=== PATIENT | female | born 1940 | race Caucasian/White ===

== ENCOUNTER 2017-01-31 12:02 | Inpatient (IN) | payer MEDICARE, BC ==
[~2017-01-31] VITALS: Ht 160 cm; Wt 59.0 kg
[2017-01-31 12:10] VITALS: Ht 160 cm; Wt 59.0 kg
[2017-01-31] MEDS ORDERED: HYDROmorphONE 1 MG/ML SYG IV STA (15:46)
[2017-01-31] MEDS ORDERED: SOD CHLORIDE 0.9% 500 ML IV ONE (16:00)
[2017-01-31] MEDS ORDERED: CLOP75TA4 PO (16:05)
[2017-01-31] MEDS ORDERED: ASPI-664 PO (16:05)
[2017-01-31] MEDS ORDERED: PRED5 PO (16:06)
[2017-01-31] MEDS ORDERED: TRAZ50TA18 PO (16:07)
[2017-01-31] MEDS ORDERED: OXYC-209 PO (16:09)
[2017-01-31] MEDS ORDERED: OXYC20TA41 PO (16:09)
[2017-01-31] MEDS ORDERED: CELE200C PO (16:10)
[2017-01-31] MEDS ORDERED: FURO40TA4 PO (16:11)
[2017-01-31] MEDS ORDERED: ESOM40CA PO (16:11)
[2017-01-31] MEDS ORDERED: DULO20CA17 PO (16:12)
[2017-01-31 16:34] LABS: ADD SCAN DIFF NO
[2017-01-31] MEDS ORDERED: FENT1PAT TD (16:34)
[2017-01-31 16:36] LABS: BASOPHILS % 0.4 % (0.0-2.0); EOSINOPHILS # 0.1 10^3/ul (0.0-0.5); EOSINOPHILS % 0.9 % (0.0-7.0); HEMATOCRIT 34.1 % (37.0-47.0); HEMOGLOBIN 10.2 g/dl (12.0-16.0); LYMPHOCYTES # 0.6 10^3/ul (0.8-2.9); LYMPHOCYTES % 11.4 % (15.0-51.0); MEAN CORPUSCULAR HEMOGLOBIN 27.9 pg (29.0-33.0); MEAN CORPUSCULAR HGB CONC 29.9 g/dl (32.0-37.0); MEAN CORPUSCULAR VOLUME 93.4 fl (82.0-101.0); MONOCYTE # 0.6 10^3/ul (0.3-0.9); MONOCYTES % 10.8 % (0.0-11.0); NEUTROPHIL # 4.1 10^3/ul (1.6-7.5); NEUTROPHILS % 76.1 % (39.0-77.0); PLATELET COUNT 271 10^3/UL (140-415); RED BLOOD COUNT 3.65 10^6/ul (4.20-5.40); RED CELL DISTRIBUTION WIDTH 13.9 % (11.5-14.5); WHITE BLOOD COUNT 5.4 10^3/ul (4.8-10.8)
--- NOTE | 2017-01-31 16:47 | RADRPT ---
PROCEDURE: XR Chest. CLINICAL INDICATION: Cough. Sepsis. TECHNIQUE: Single frontal view. COMPARISON: None. FINDINGS: The lungs are clear. The heart is enlarged. There is calcification in the aorta consistent with atherosclerosis. There is no pleural effusion or pneumothorax. There is chronic deformity of the right glenohumeral joint. IMPRESSION: 1. Cardiomegaly and atherosclerosis. 2. Clear lungs. 3. Chronic deformity of the right glenohumeral joint. RPTAT: QQ .Sven Sher MD, MD Date Time Electronically viewed and signed by .Sven Sher MD, MD on 01/31/2017 16:47 .R/
[2017-01-31] MEDS ORDERED: VANCOMYCIN 1 GM (PMX) 250 ML IVPB SCH (17:00)
[2017-01-31] MEDS ORDERED: PIPER-TAZO 3.375 GM IV (PMX) 100 ML IVPB ONE (17:00)
[2017-01-31] MEDS ORDERED: SOD CHLORIDE 0.9% 1,000 ML IV ONE (17:00)
[2017-01-31 17:12] LABS: INR 1.06; PARTIAL THROMBOPLASTIN TIME 32.4 Sec (25.0-35.0); PROTIME 13.8 Sec (12.2-14.2); PT RATIO 1.1
[2017-01-31] MEDS ORDERED: ONDANSETRON 4 MG INJ IV PRN ×2 (18:00→23:30)
[2017-01-31] MEDS ORDERED: ACETAMINOPHEN 325 MG TAB PO PRN (18:00)
--- NOTE | 2017-01-31 18:02 | CONS ---
DATE OF ADMISSION: 01/31/2017 DATE OF CONSULTATION: 01/31/2017 CHIEF COMPLAINT: Right foot infection. HISTORY OF PRESENT ILLNESS: A 76-year-old female who developed wounds on the plantar surface of the right foot. She has been off antibiotics for 10 days prior. She had been on a couple courses of o ral antibiotics with minimal improvement. She has multiple comorbidities including peripheral arter ial disease and history of right lower extremity angioplasty with possible stent placement in the oin, performed in [place] by [facility]. The patient has multiple comorbidities including rheumatoid arthritis, history of a Charcot foot deformity of the right foot. PAST MEDICAL HISTORY: Rheumatoid arthritis. PAST SURGICAL HISTORY: Shoulder surgery, bilateral knee replacement, back surgery, right foot recon struction, venous ablation and right lower extremity stent angioplasty. ALLERGIES: POSSIBLE ANTIBIOTICS, UNKNOWN NAME. PHYSICAL EXAMINATION: VITAL SIGNS: Temperature 98.3, pulse 78, respiratory rate 18, blood pressure 112/54, pulse oximetry 92% on room air. GENERAL: The patient alert, oriented. HEAD: Normocephalic, atraumatic. NECK: Trachea is midline. EXTREMITIES: The patient with right foot deformity. Medial foot incision with scarring. There are multiple plantar wounds with purulent drainage. There is ascending erythema of approximately 3 to 4 cm and a possible fluctuant mass. Multiple varicosities. Right lateral ankle ulceration measurin g approximately 5 x 4 cm with hyperpigmentation of skin. Skin atrophy. She has 2+ pitting edema. Pedal pulses are diminished. Absent protective sensation. No instability noted of hindfoot or midf oot. IMAGING: X-rays pending. LABORATORY DATA: WBC 5.4, hemoglobin 10.2, hematocrit 34.1, platelets 271. Sed rate pending. ASSESSMENT: 1. Right foot cellulitis with possible abscess. 2. Poor response to outpatient treatment on oral antibiotics. 3. Nonhealing ulceration. 4. Rheumatoid arthritis. 5. Peripheral arterial disease. PLAN: The patient seen and evaluated. Obtain arterial noninvasives, radiographs, possible CTA, vas cular consultation and initiate on broad-spectrum antibiotics. X-rays ordered and plan to review wi th the patient. Further recommendations pending clinical appearance. The patient initiated on vanc omycin and Zosyn in the emergency room. The patient has a planned admission with estimated length o f stay of 3 to 5 days. Dictated By: SIMA SARGENT DPM RB/NTS Conf#: [id number] DID#: [id number]
--- NOTE | 2017-01-31 18:50 | ERA ---
ER Documentation Chief Complaint Date/Time DATE: 01/31/17 TIME: 18:42 Chief Complaint right foot wound sent by pmd for admission HPI This 76-year-old female was sent in by her primary care doctor to be admitted for nonhealing right lower extremity ulceration. Patient is not diabetic but does have bad peripheral vascular disease and has a history of stenting. Prone vascular surgeon is not nearby not available currently. She has been on Keflex for 10 days with worsening of the ulcers and pain. States that she is already had a lateral lower extremity ultrasounds to rule out DVT and has had much testing. She denies having CAT scan with contrast to evaluate her vascular status. Denies fever and chills. Her only symptom is the leg pain and redness was spreading and increased size of ulceration.. ROS All systems reviewed and are negative except as per history of present illness. Medications Home Meds Reported Medications Fentanyl Patch (Duragesic Patch) 25 Mcg/Hr Transdermal Patch, 1 PATCH TD Q48H, PATCH 01/31/17 Duloxetine Hcl* (Duloxetine Hcl*) 20 Mg Capsule.dr, 20 MG PO DAILY, #30 CAP 01/31/17 Furosemide* (Furosemide*) 40 Mg Tablet, 40 MG PO DAILY, TAB 01/31/17 Esomeprazole Mag Trihydrate (Nexium) 40 Mg Capsule.dr, 40 MG PO DAILY Y for PRN , #30 CAP 01/31/17 Celecoxib* (Celebrex*) 200 Mg Capsule, 200 MG PO BID, CAP 01/31/17 Oxycodone HCl/Acetaminophen (Percocet 10-325 mg Tablet) 1 Each Tablet, 1 EACH PO Q6H, TAB 01/31/17 Oxycodone Hcl* (Oxycontin*) 20 Mg Tab.er.12h, 20 MG PO Q4, TAB 01/31/17 Trazodone Hcl* (Trazodone Hcl*) 50 Mg Tablet, 50 MG PO DAILY, #30 TAB 01/31/17 Prednisone* (Prednisone*) 5 Mg Tab, 5 MG PO DAILY, TAB 01/31/17 Aspirin* (Aspirin* EC) 81 Mg Tablet.dr, 81 MG PO DAILY, TAB 01/31/17 Clopidogrel Bisulfate* (Clopidogrel Bisulfate*) 75 Mg Tablet, 75 MG PO DAILY, # 30 TAB 01/31/17 Allergies Allergies: Coded Allergies: No Known Allergy (Unverified , 01/31/17) PATIENT HAS ALLERGY TO SOME ANTIBIOTICS, BUT SHE DOES NOT REMEMBER THE NAMES PMhx/Soc History of Surgery: Yes (shoulder surgery ; bilateral knee replacement; back; right foot reconstruct) Anesthesia Reaction: No Hx Neurological Disorder: No Hx Respiratory Disorders: No Hx Cardiac Disorders: No Hx Psychiatric Problems: No Hx Miscellaneous Medical Probl: Yes (rheumatoid arthritis) Hx Alcohol Use: No Hx Substance Use: No Hx Tobacco Use: No Smoking Status: Never smoker Physical Exam Vitals Vital Signs Date Time Temp Pulse Resp B/P Pulse Ox O2 Delivery O2 Flow Rate FiO2 01/31/17 12:10 98.3 78 18 112/54 92 Physical Exam Const: [] Mild distress Head: Atraumatic Eyes: Normal Conjunctiva ENT: Normal External Ears, Nose and Mouth. Neck: Full range of motion..~ No meningismus. Resp: Clear to auscultation bilaterally Cardio: Regular rate and rhythm, no murmurs Abd: Soft, non tender, non distended. Normal bowel sounds Skin: No petechiae or rashes Back: No midline or flank tenderness Ext: No cyanosis, bilateral pedal edema worse on right than left, various ulcerations of the right lower extremity with the largest being on the lateral lower calf but also having interdigital ulcerations on the foot. There is no purulent drainage currently but there is surrounding erythema and calor. Dorsalis pedis pulses are intact bilaterally. She does not have a cold foot. Neur: Awake and alert and oriented 3, no focal deficits Psych: Normal Mood and Affect Result Diagram: 01/31/17 3897 Results 24 hrs Laboratory Tests Test 01/31/17 16:27 White Blood Count 5.410^3/ul Red Blood Count 3.6510^6/ul Hemoglobin 10.2g/dl Hematocrit 34.1% Mean Corpuscular Volume 93.4fl Mean Corpuscular Hemoglobin 27.9pg Mean Corpuscular Hemoglobin Concent 29.9g/dl Red Cell Distribution Width 13.9% Platelet Count 34074^3/UL Mean Platelet Volume 11.0fl Neutrophils % 76.1% Lymphocytes % 11.4% Monocytes % 10.8% Eosinophils % 0.9% Basophils % 0.4% Nucleated Red Blood Cells % 0.0/100WBC Neutrophils # 4.110^3/ul Lymphocytes # 0.610^3/ul Monocytes # 0.610^3/ul Eosinophils # 0.110^3/ul Basophils # 0.010^3/ul Nucleated Red Blood Cells # 0.010^3/ul Prothrombin Time 13.8Sec Prothrombin Time Ratio 1.1 INR International Normalized Ratio 1.06 Activated Partial Thromboplast Time 32.4Sec Current Medications Medications (Trade) Dose Ordered Sig/Tana Route PRN Reason Start Time Stop Time Status Last Admin Dose Admin Sodium Chloride (NS) 500 ml @ 500 mls/hr Q1H ONCE IV 01/31/17 16:00 01/31/17 16:59 DC 01/31/17 16:15 Hydromorphone HCl 1 mg 1 mg ONCE STAT IV 01/31/17 15:46 01/31/17 15:59 DC 01/31/17 16:15 Piperacillin Sod/ Tazobactam Sod 100 ml @ 200 mls/hr ONCE ONCE IVPB 01/31/17 17:00 01/31/17 17:29 DC 01/31/17 17:33 Vancomycin HCl 250 ml @ 125 mls/hr ONCE IVPB 01/31/17 17:00 01/31/17 18:59 Sodium Chloride (NS) 1,000 ml @ 1,000 mls/hr Q1H ONCE IV 01/31/17 17:00 01/31/17 17:59 DC 01/31/17 17:33 Ondansetron HCl (Zofran Inj) 4 mg BRIDGE ORDER PRN IV NAUSEA AND/OR VOMITING 01/31/17 18:00 02/01/17 17:59 Acetaminophen (Tylenol Tab) 650 mg ER BRIDGE PRN PO MILD PAIN/FEVER 01/31/17 18:00 02/01/17 17:59 Procedures/MDM Patient with cellulitis that failed outpatient treatment with a history of severe peripheral vascular disease. Currently the patient has blood flow to the extremities although may be impaired causing inability for ulcerations to heal and providing bacteria within all the opportunity to further infected tissues. She was treated with vancomycin and Zosyn in the emergency room. She was given IV fluid. She was also given 1 of Dilaudid for pain as her normal home regimen includes OxyContin. Also given her a liter of IV fluid for renal protection from contrast CT scan. Her vital signs are stable. Have ordered a CT angios with runoff to guide the patient's treatment. Spoke with Dr. Kearns who will be admitting the patient. Vascular will likely be consulted although currently there is no need for emergent intervention. I have performed preoperative testing in the event that the patient may need revision of her stent or further vascular procedures. She is otherwise stable. She does have persistent bradycardia with normal blood pressure this is likely chronic in nature. Chest x-ray interpretation: I see no acute process, no pulmonary edema, no widened mediastinum, no pneumothorax, no infiltrate, no fractures Departure Diagnosis: Primary Impression: Cellulitis of right lower extremity Additional Impressions: Failure of outpatient treatment Peripheral vascular disease Normocytic anemia Bilateral claudication of lower limb Condition: Stable LEIGH CARLSON DO January 31, 2017 18:50
[2017-01-31 18:57] VITALS: TEMP 98.4
[2017-01-31 19:27] LABS: ALBUMIN 3.7 g/dl (3.3-4.9); ALBUMIN/GLOBULIN RATIO 0.97; CALCIUM 9.8 mg/dl (8.4-10.2); CREATININE 0.72 mg/dl (0.44-1.00); POTASSIUM 5.5 mmol/L (3.5-5.1); TOTAL PROTEIN 7.5 g/dl (6.1-8.1)
--- NOTE | 2017-01-31 19:27 | RADRPT ---
PROCEDURE: XR Foot. CLINICAL INDICATION: Right foot ulceration with swelling TECHNIQUE: AP, lateral and oblique views of the right foot was obtained. The images were reviewed on a PACS workstation. COMPARISON: None. FINDINGS: Diffuse osteopenia is seen. Postoperative changes are seen in the ankle, calcaneus, and tarsal regio n. No definite osteolytic or destructive lesion is seen. No definite acute displaced fracture or dis location is seen. Degenerative changes are seen in the tarsal bones first metatarsal region. Ather osclerotic vascular disease is seen. Dorsal soft tissue swelling is seen. IMPRESSION: 1. No radiographic evidence for osteomyelitis. If there is continued clinical concern for osteomye litis, an MRI of the right foot is recommended. 2. Postoperative changes in the right ankle and foot as detailed above. 3. Dorsal soft tissue swelling. RPTAT: HPNM Physician Archie Date Time Electronically viewed and signed by Physician Archie on 01/31/2017 19:27 /
--- NOTE | 2017-01-31 19:39 | RADRPT ---
PROCEDURE: US Lower extremity Arteries. CLINICAL INDICATION: Diminished pulses. TECHNIQUE: Multiple longitudinal and transverse images of the bilateral lower extremity arteries w ere obtained with davis scale and color Doppler imaging. COMPARISON: No prior studies are available for comparison. FINDINGS: Location RightWaveform LGY685.4 cm/sectriphasic NGBF286.8 cm/sectriphasic WOBP087.8 cm/sectriphasic WCXL107.8 cm/sectriphasic GXX481.3 cm/sectriphasic PTA92.0 cm/secmonophasic DPA3.1 cm/secmonophasic LeftWaveform LDP657.3 cm/sectriphasic OYBU757.1 cm/secmonophasic DNJP330.4 cm/sectriphasic DSFA94.4 cm/sectriphasic POP76.6 cm/sectriphasic PTA69.7 cm/secmonophasic EFL102.3 cm/secbiphasic The bilateral lower extremities are diffusely calcified. SAMIRA measurements Right [employer] SCHO[employer] FRENCH TEACHER: Calcified Right DPA: 0.9 Left MID[employer] SCHO[employer] FRENCH TEACHER: 0.9 Left DPA: 0.9 IMPRESSION: 1. Diffusely calcified bilateral extremity arteries. No focal arterial stenosis is visualized. 2. Monophasic waveforms in the right posterior tibial and dorsalis pedis arteries, and the left prox imal superficial femoral and posterior tibial arteries. This is consistent with inflow disease due to upstream stenoses. RPTAT: HTAR .Jj Nunez MD, Date Time Electronically viewed and signed by .Jj Nunez MD, on 01/31/2017 19:39 .R/
[2017-01-31] MEDS ORDERED: SOD CHLORIDE 0.9% 100 ML ONE (20:08)
[2017-01-31] MEDS ORDERED: IOHEXOL 100 ML ONE (20:08)
[2017-01-31] MEDS ORDERED: IOHEXOL 350MG/ML 50 ML BTL ONE (20:09)
[2017-01-31 20:24] VITALS: BP 165/70; RESP 19
--- NOTE | 2017-01-31 20:36 | CONS ---
Date/Time of Note Date/Time of Note DATE: 01/31/17 TIME: 20:34 Assessment/Plan Assessment/Plan Problems: (1) Peripheral vascular disease Status: Acute (2) Normocytic anemia Status: Acute (3) Cellulitis of right lower extremity Status: Acute (4) Bilateral claudication of lower limb Status: Acute (5) Failure of outpatient treatment Status: Acute Additional Assessment/Plan Patient has PAD CLI wound due to severe PAD Location Right Waveform REPULPING SUPERVISOR 110.4 cm/sec triphasic PSFA 167.8 cm/sec triphasic MSFA 167.8 cm/sec triphasic DSFA 105.8 cm/sec triphasic POP 111.3 cm/sec triphasic SET UP MACHINIST 92.0 cm/sec monophasic DPA 3.1 cm/sec monophasic Left Waveform REPULPING SUPERVISOR 129.3 cm/sec triphasic PSFA 107.1 cm/sec monophasic MSFA 127.4 cm/sec triphasic DSFA 94.4 cm/sec triphasic POP 76.6 cm/sec triphasic SET UP MACHINIST 69.7 cm/sec monophasic DPA 147.3 cm/sec biphasic The bilateral lower extremities are diffusely calcified. SAMIRA measurements Right SET UP MACHINIST: Calcified Right DPA: 0.9 Left SET UP MACHINIST: 0.9 Left DPA: 0.9 IMPRESSION: 1. Diffusely calcified bilateral extremity arteries. No focal arterial stenosis is visualized. 2. Monophasic waveforms in the right posterior tibial and dorsalis pedis arteries, and the left proximal superficial femoral and posterior tibial arteries. This is consistent with inflow disease due to upstream stenoses. Below the knee disease and will need microvascular interventions and loop reconstruction. plan to schedule it out pt d/w pt and . continue pt care here and abx. plan per podiatry. Consultation Date/Type/Reason Admit Date/Time January 31, 2017 at 18:00 Date of Consultation: January 31, 2017 Type of Consultation: Endovascular Cardiology Reason for Consultation PAD Hx of Present Illness Patient is 76 year old F with PMH of HTN, HLD, PAD, Venous insufficiency has venous ablation befroe, also has PAD with stent in past. came in with non healing wound and infection for IV abs Constitutional: no complaints Past Medical History Medical History: coronary artery disease Social History Smoking Status: Never smoker Exam/Review of Systems Vital Signs Vitals Vital Signs Date Time Temp Pulse Resp B/P Pulse Ox O2 Delivery O2 Flow Rate FiO2 01/31/17 20:24 98.2 58 19 165/70 98 01/31/17 18:57 Room Air Exam Constitutional: alert, oriented Psych: no complaints Head: normocephalic Eyes: nl conjunctiva ENMT: nl external ears & nose Respiratory: clear to auscultation Cardiovascular: regular rate and rhythm Gastrointestinal: nl liver, spleen, soft Results Result Diagram: 01/31/17 1627 01/31/17 1630 Results 24 hrs Laboratory Tests Test 01/31/17 16:27 01/31/17 16:30 White Blood Count 5.4 Red Blood Count 3.65 L Hemoglobin 10.2 L Hematocrit 34.1 L Mean Corpuscular Volume 93.4 Mean Corpuscular Hemoglobin 27.9 L Mean Corpuscular Hemoglobin Concent 29.9 L Red Cell Distribution Width 13.9 Platelet Count 271 Mean Platelet Volume 11.0 H Neutrophils % 76.1 Lymphocytes % 11.4 L Monocytes % 10.8 Eosinophils % 0.9 Basophils % 0.4 Nucleated Red Blood Cells % 0.0 Neutrophils # 4.1 Lymphocytes # 0.6 L Monocytes # 0.6 Eosinophils # 0.1 Basophils # 0.0 Nucleated Red Blood Cells # 0.0 Prothrombin Time 13.8 Prothrombin Time Ratio 1.1 INR International Normalized Ratio 1.06 Activated Partial Thromboplast Time 32.4 Sodium Level 136 Potassium Level 5.5 H Chloride Level 97 Carbon Dioxide Level 33 H Anion Gap 12 Blood Urea Nitrogen 29 H Creatinine 0.72 Glucose Level 104 Calcium Level 9.8 Total Bilirubin 0.0 L Direct Bilirubin 0.00 Indirect Bilirubin 0.0 Aspartate Amino Transf (AST/SGOT) 36 Alanine Aminotransferase (ALT/SGPT) 25 Alkaline Phosphatase 90 Total Protein 7.5 Albumin 3.7 Globulin 3.80 H Albumin/Globulin Ratio 0.97 MARCELLO LANGFORD MD January 31, 2017 20:36
[2017-01-31] MEDS ORDERED: HYDROmorphONE 1 MG/ML SYG IV ONE (21:30)
--- NOTE | 2017-01-31 23:17 | RADRPT ---
PROCEDURE: CTA lower extremities CLINICAL INDICATION: Peripheral vascular disease, nonhealing infected ulcers. TECHNIQUE: A CT angiogram of the pelvis with lower extremity runoff was performed with intravenous contrast. The patient was scanned following the uncomplicated intravenous administration of 125 cc of Omnipaque 350. Coronal and sagittal reformatted images were obtained from the axial source imag es. Images were reviewed on a high-resolution PACS workstation. CTDIvol: 5.82, 46.53, 22.69 mGy. DLP : 2700.53 mGy-cm. COMPARISON: Lower extremity arterial ultrasound dated 01/31/2017. FINDINGS: CT angiogram: The distal abdominal aorta is normal in caliber. There is no aortic dissection. The b ilateral common, internal, external iliac arteries are widely patent. There is minimal calcified ao rtoiliac plaque. There is a right common and external iliac vein stent in place. Patency of the isaias nt cannot be determined due to arterial phase of contrast. The right common and deep femoral arteries are widely patent. There is moderate calcified atheroscl erotic plaque along the right superficial femoral artery, without stenosis. Evaluation of the popli teal artery is limited by artifact from a right knee arthroplasty. There is minimal calcified ather osclerotic plaque along the visualized right popliteal vein, without stenosis. There is mild to mod erate calcified atherosclerotic plaque along the right anterior tibial and posterior tibial arteries . Normal three-vessel runoff into the right foot is noted, with normal filling of the right dorsali s pedis artery. The visualized arteries of the right foot appear adequately patent. The patient is status post fusion of the right ankle, hindfoot, and medial midfoot. The left common and deep femoral arteries are widely patent. There is moderate calcified atheroscler otic plaque along the left superficial femoral artery, without stenosis. Evaluation of the left pop liteal artery is limited by artifact from a left knee arthroplasty. There is minimal calcified athe rosclerotic plaque in the distal left popliteal artery without stenosis. Extensive multifocal calci fication of the left posterior tibial artery is seen, with very minimal contrast opacification of it s distal foot branches. There is mild calcification of the left anterior tibial artery, but the ves trenton remains patent into the foot. The left dorsalis pedis artery also appears patent. The left per stanton artery is also adequately patent into the foot. There is diminished contrast opacification of the distal left foot arteries as compared with the contralateral foot. CT pelvis: There is a 1.8 cm noncalcified cyst in the inferior right hepatic lobe, nonspecific. Par tially imaged bilateral renal cysts measure up to 3.0 cm on the right. The visualized small and large bowel are normal in caliber. There is a moderate volume of retained stool in the colon. The appendix is normal. The urinary bladder is unremarkable. The patient is status post hysterectomy. No adnexal mass is se en. There is no ascites. There is no lymphadenopathy. No pneumoperitoneum is seen. There is no suspicious osseous lesion. Degenerative changes are noted along the spine. The patient is status post posterior decompression along the lumbar spine. IMPRESSION: 1. Widely patent distal aorta and bilateral iliac arteries. 2. Mild to moderate atherosclerotic plaque along the right lower extremity arteries. The right lo wer extremity arteries remain widely patent, however, with three-vessel runoff into the right foot. 3. Mild to moderate atherosclerotic plaque along the left lower extremity arteries, with more exten sive plaque seen along the left posterior tibial artery. There is only minimal contrast opacificati on of the distal branches of the left posterior tibial artery in the left foot. The left anterior t ibial and peroneal arteries are adequately patent into the left foot, however there is overall dimin ished contrast opacification of the distal left foot arteries as compared with the right foot. 4. Stent in the right common and external iliac veins. Patency of the stent cannot be determined d ue to arterial phase contrast. 5. Status post bilateral knee arthroplasties, fusion of the right ankle, hindfoot, and medial midfo ot, hysterectomy, and lumbar spine posterior decompression. 6. Moderate volume of retained stool in the colon. RPTAT: HTAR .Jj Nunez MD, MD Date Time Electronically viewed and signed by .Jj Nunez MD, on 01/31/2017 23:16 .R/
--- NOTE | 2017-01-31 23:22 | HP ---
Date/Time of Note Date/Time of Note DATE: 01/31/17 TIME: 23:21 Assessment/Plan VTE Prophylaxis VTE Prophylaxis Intervention: LMWH Lines/Catheters IV Catheter Type (from [facility]): Peripheral IV Assessment/Plan Chief Complaint/Hosp Course This is a 76-year-old female who is being admitted to the [facility] floor for: #1 right lower extremity infection: Started on vancomycin and Zosyn in the ED will continue Vanco and Zosyn. Obtain wound culture. Currently white blood cell count within normal limits patient is afebrile. Will consult wound care. Consult to podiatry and vascular surgery also has been placed by ED. Further imaging studies have also been placed by the consultants. Will await further recommendations from podiatry and vascular surgery. Will hold patient's home pain medications and put her on IV Dilaudid and Percocet. #2 Hyperkalemia: Potassium is 5.5. At the current time will repeat BMP in the morning and give Kayexalate if necessary. She is currently on Lasix. #3 peripheral vascular disease: We will await further recommendations from podiatry and vascular surgery. Continue current home aspirin Plavix. #4 Rheumatoid arthritis: We will continue patient's home prednisone dose as she has been on it for quite some time though this may interfere with her healing. Will also continue acid katie as she is on chronic steroids. #5 anxiety: We will continue patient's trazodone and duloxetine. #6 DVT and GI prophylaxis: Lovenox, PPI Further treatment strategy will be implemented as per the clinical course. Problems: HPI/ROS Admit Date/Time Admit Date/Time January 31, 2017 at 18:00 Hx of Present Illness Chief complaint: Right wound ulceration This 76-year-old female was sent in by her primary care doctor to be admitted for nonhealing right lower extremity ulceration. Patient is not diabetic but does have bad peripheral vascular disease and has a history of stenting. Prone vascular surgeon is not nearby not available currently. She has been on Keflex for 10 days with worsening of the ulcers and pain. States that she is already had a lateral lower extremity ultrasounds to rule out DVT and has had much testing. She denies having CAT scan with contrast to evaluate her vascular status. Denies fever and chills. Her only symptom is the leg pain and redness was spreading and increased size of ulceration.. Allergies: NKDA Medications: See NOV ROS Const: As per HPI Eyes : No pain discharge or redness or change in visual acuity ENT: No pain, sore throat, congestion, congestion, dysphagia or discharge Respiratory: No shortness of breath, cough, sputum, wheezing, or pleuritic pain Cardiovascular: No chest pain, palpitation, PND, or edema GI : no change in appetite, abdominal pain, nausea, vomiting, diarrhea, constipation, or change in the color his stool Genitourinary: No dysuria, hematuria, flank pain , discharge or CVA tenderness Musculoskeletal: As per HPI Skin: No rash, bruising or hives Neuro: No headache, dizziness, syncope, seizure, focal weakness Endocrine: No polyuria, polydipsia, temperature intolerance Psych: No hallucination, depression, anxiety or suicidal ideation Psychological: no complaints PMH/Family/Social Past Medical History Peripheral vascular disease, rheumatoid arthritis, HTN, HLD, Venous insufficiency, anxiety Past Surgical History Bilateral knee replacement, right shoulder surgery, spinal stenosis surgery, 3 right foot surgeries, total abdominal hysterectomy Family History Significant Family History: heart disease (That), cancer (Mom: Lung cancer) Social History Alcohol Use: none Smoking Status: Never smoker Drug Use: none Exam/Review of Systems Vital Signs Vitals Vital Signs Date Time Temp Pulse Resp B/P Pulse Ox O2 Delivery O2 Flow Rate FiO2 01/31/17 20:24 98.2 58 19 165/70 98 01/31/17 18:57 Room Air Exam Exam General: Patient is a pleasant female, is in mild pain secondary to her right lower extremity. The patient is alert oriented -3 lying comfortably in bed. HEENT: Atraumatic, normocephalic. The pupils are equal, round and reactive. Extraocular motor are intact Neck: Supple with full range of motion. No rigidity or meningismus Chest: Nontender Lungs: Clear to auscultation bilaterally no crackles rales or wheezing Heart: Normal S1-S2, Regular rhythm and rate. No murmur, S3, or S4 Abdomen: Soft , nontender, nondistended , bowel sounds are present. No guarding no rebound tenderness , No masses or organomegaly. No costovertebral temporal angle mass Extremities: No cyanosis, bilateral pedal edema worse on right than left, various ulcerations of the right lower extremity with the largest being on the lateral lower calf but also having interdigital ulcerations on the foot. There is no purulent drainage currently but there is surrounding erythema and calor. Dorsalis pedis pulses are intact bilaterally. She does not have a cold foot. Neurologic: Normal mental status, speech normal, cranial nerves II through XII are intact, motor and sensory are intact, no focal weakness Additional Comments PROCEDURE: XR Chest. CLINICAL INDICATION: Cough. Sepsis. TECHNIQUE: Single frontal view. COMPARISON: None. FINDINGS: The lungs are clear. The heart is enlarged. There is calcification in the aorta consistent with atherosclerosis. There is no pleural effusion or pneumothorax. There is chronic deformity of the right glenohumeral joint. IMPRESSION: 1. Cardiomegaly and atherosclerosis. 2. Clear lungs. 3. Chronic deformity of the right glenohumeral joint. RPTAT: QQ .Sven Sher MD, MD Date Time Electronically viewed and signed by .Sven Sher MD, MD on 01/31/2017 16:47 Labs Result Diagram: 01/31/17 1627 01/31/17 1630 Medications Medications Current Medications Ondansetron HCl (Zofran Inj) 4 mg Q6H PRN IV NAUSEA AND/OR VOMITING; Start at 23:30 Oxycodone/ Acetaminophen (Percocet (5/ 325)) 1 tab Q6H PRN PO MODERATE PAIN LEVEL 4-6; Start 01/31/17 at 23:30 Hydromorphone HCl (Dilaudid) 1 mg Q4H PRN IV SEVERE PAIN LEVEL 7-10; Start at 23:30 Docusate Sodium (Colace) 100 mg Q12H PRN PO CONSTIPATION; Start 01/31/17 at 23: 30 Bisacodyl (Dulcolax) 5 mg DAILY PRN PO CONSTIPATION; Start 01/31/17 at 23:30 Famotidine (Pepcid) 20 mg Q12 PO ; Start 01/31/17 at 23:30 Enoxaparin Sodium 40 mg 40 mg DAILY SC ; Start 02/01/17 at 09:00 Vancomycin HCl (Vancocin) 250 ml @ 125 mls/hr Q12H IVPB ; Start 02/01/17 at 06: 00 KATELYNN ARDON January 31, 2017 23:21
[2017-01-31] MEDS ORDERED: NACL 0.9% 3 ML SYG IV SCH (23:30)
[2017-01-31] MEDS ORDERED: VANCOMYCIN IV PER PHARMACY XX SCH (23:30)
[2017-01-31] MEDS ORDERED: BISACODYL (EC) 5 MG TAB PO PRN (23:30)
[2017-01-31] MEDS ORDERED: DOCUSATE SODIUM 100 MG CAP PO PRN (23:30)
[2017-01-31] MEDS ORDERED: FAMOTIDINE 20 MG TAB PO SCH (23:30)
[2017-01-31] MEDS: OXYCODONE/ACETAMINOPHEN (5/325) TAB PO PRN (23:50)
[2017-02-01] MEDS: HYDROmorphONE 1 MG/ML SYG IV PRN ×6 (01:29→22:24)
[2017-02-01] MEDS: VANCOMYCIN 1 GM in NS 250 ML IVPB SCH ×2 (05:31→17:53)
[2017-02-01] MEDS: FUROSEMIDE 40 MG TAB PO SCH (05:36)
[2017-02-01 06:17] LABS: ADD SCAN DIFF NO
[2017-02-01 06:26] LABS: BASOPHILS % 0.2 % (0.0-2.0); EOSINOPHILS # 0.1 10^3/ul (0.0-0.5); EOSINOPHILS % 2.8 % (0.0-7.0); HEMATOCRIT 32.5 % (37.0-47.0); HEMOGLOBIN 9.7 g/dl (12.0-16.0); LYMPHOCYTES # 0.8 10^3/ul (0.8-2.9); LYMPHOCYTES % 18.8 % (15.0-51.0); MEAN CORPUSCULAR HEMOGLOBIN 27.9 pg (29.0-33.0); MEAN CORPUSCULAR HGB CONC 29.8 g/dl (32.0-37.0); MEAN CORPUSCULAR VOLUME 93.4 fl (82.0-101.0); MEAN PLATELET VOLUME 10.9 fl (7.4-10.4); MONOCYTE # 0.5 10^3/ul (0.3-0.9); MONOCYTES % 11.1 % (0.0-11.0); NEUTROPHIL # 2.8 10^3/ul (1.6-7.5); NEUTROPHILS % 66.9 % (39.0-77.0); PLATELET COUNT 220 10^3/UL (140-415); RED BLOOD COUNT 3.48 10^6/ul (4.20-5.40); RED CELL DISTRIBUTION WIDTH 14.1 % (11.5-14.5); WHITE BLOOD COUNT 4.3 10^3/ul (4.8-10.8)
[2017-02-01 06:54] LABS: ALBUMIN 3.1 g/dl (3.3-4.9); ALBUMIN/GLOBULIN RATIO 0.91; BILIRUBIN,INDIRECT 0.1 mg/dl (0-1.1); BILIRUBIN,TOTAL 0.1 mg/dl (0.2-1.3); CALCIUM 9.2 mg/dl (8.4-10.2); CHOL/HDL RATIO 2.4 RATIO; CREATININE 0.56 mg/dl (0.44-1.00); MAGNESIUM 1.8 mg/dl (1.7-2.5); POTASSIUM 4.1 mmol/L (3.5-5.1); TOTAL PROTEIN 6.5 g/dl (6.1-8.1)
[2017-02-01 07:45] VITALS: BP 129/59; RESP 20
[2017-02-01] MEDS: PIPER-TAZO 3.375 GM IV (PMX) 100 ML IVPB SCH ×3 (08:37→23:25)
[2017-02-01] MEDS: traZODone 50 MG TAB PO SCH (08:37)
[2017-02-01] MEDS: OXYCODONE/ACETAMINOPHEN (5/325) TAB PO PRN ×3 (08:38→23:25)
[2017-02-01] MEDS: CLOPIDOGREL 75 MG TAB PO SCH (08:38)
[2017-02-01] MEDS: ASPIRIN (EC) 81 MG TAB PO SCH (08:38)
[2017-02-01] MEDS: predniSONE 5 MG TAB PO SCH (08:38)
[2017-02-01] MEDS ORDERED: DULOXETINE 20 MG CAP DR PO SCH (09:00)
[2017-02-01] MEDS: ENOXAPARIN 40 MG/0.4 ML SYG SC SCH (09:11)
[2017-02-01] MEDS ORDERED: LIDOCAINE 2% (MDV) 20 ML INJ INJ ONE (10:30)
[2017-02-01] MEDS ORDERED: hydrALAzine 20 MG INJ IV PRN (11:00)
--- NOTE | 2017-02-01 11:56 | PN ---
DATE: 02/01/2017 TIME OF EVALUATION: 11:15 a.m. SUBJECTIVE DATA: Complains of right lower extremity pain. OBJECTIVE DATA: VITAL SIGNS: Temperature 98.0, pulse rate 80, respiratory rate 20, blood pressure 129/50, oxygen saturation 95% on room air. GENERAL: This is a 76-year-old elderly female lying in bed in no apparent distress. HEENT: Head normocephalic and atraumatic. Eyes: Anicteric sclerae. Conjunctivae clear. ENT: Nasal septum is midline. Oral mucosa is moist. NECK: Supple. JVD noticed. RESPIRATORY: Bilaterally clear to auscultation. No adventitious breath sounds heard. No use of accessory muscles of respiration. CARDIAC: Regular rate and rhythm. No murmurs. ABDOMEN: Soft, nontender and nondistended. Bowel sounds positive in all 4 quadrants. GENITOURINARY: Deferred. EXTREMITIES: No cyanosis, no clubbing, no edema of the left lower extremity. Left lower extremity dorsalis pedis pulse palpable. Bilateral lower extremity edema and erythema with right foot dressing. NEUROLOGIC: The patient is awake, alert and oriented. Cranial nerves are grossly intact. LABORATORY DATA AND DIAGNOSTIC DATA: WBC 4.3, hemoglobin 9.7, hematocrit 32.5, platelet count 220. Sodium 139, potassium 4.1, chloride 104, carbon dioxide 30 , anion gap 9, BUN 17, creatinine 0.56, glucose 86, calcium 9.2, magnesium 1.8. ASSESSMENT AND PLAN: 1. Right lower extremity chronic wound infection. Failed outpatient treatment. The patient will be continued on antibiotics. Will call infectious disease on the case. Pancultures are pending at this time. The patient being followed by podiatry and vascular surgery. 2. Peripheral vascular disease. Being followed by podiatry and vascular surgery. We will continue the patient on aspirin and Plavix. 3. Rheumatoid arthritis. The patient's home prednisone will be continued. 4. Hyperkalemia. Resolved. Monitor. 5. Normocytic anemia. Etiology unclear. Most probably anemia of chronic disease. Will monitor the H&H closely. Will transfuse as needed. 6. Fluid, electrolytes and nutrition. Regular diet as tolerated. 7. Deep vein thrombosis prophylaxis with subcutaneous Lovenox. 8. Gastrointestinal prophylaxis. Proton pump inhibitors . 9. Plan. Continue analgesics. Continue antibiotics. Involve infectious disease on the case. Await further recommendations from podiatry and vascular surgery. The case was discussed with Dr. Cano. DAVID CANO MD, AM/OTONIEL Conf#: [id number] DID#: [id number] MTDD
--- NOTE | 2017-02-01 15:36 | CONS ---
DATE OF ADMISSION: 01/31/2017 DATE OF CONSULTATION: 02/01/2017 INFECTIOUS DISEASE CONSULTATION REASON FOR CONSULTATION: Antibiotic management. HISTORY OF PRESENT ILLNESS: Sima Pace is a 76-year-old female who was sent in by her primary doctor for nonhealing right lower extremity ulceration. The patient reportedly is not diabetic but does have severe peripheral vascular disease and has a history of stenting in the past. She has bee n on Keflex for 10 days with worsening of the ulcers and pain. She has a bilateral lower extremity ultrasound to rule out DVT. She denies CAT scan with contrast to evaluate her vascular status. She has no fever or chills. Her symptoms are that of leg pain, redness, and increased size of her ulce ration. PAST MEDICAL HISTORY: Operations as outlined. FAMILY HISTORY: Noncontributory. PAST MEDICAL HISTORY: Includes peripheral vascular disease, rheumatoid arthritis, hypertension, hyp erlipidemia, venous insufficiency, and anxiety. PAST SURGICAL HISTORY: Bilateral knee replacements, right shoulder surgery, spinal surgery for spin al stenosis, three right foot surgeries, and a total abdominal hysterectomy. FAMILY HISTORY: Noncontributory. SOCIAL HISTORY: She does not smoke, drink, or abuse drugs. ALLERGIES: NONE TO PENICILLIN, SULFA, OR FOODS. MEDICATIONS: Per chart. REVIEW OF SYSTEMS: As per HPI. PHYSICAL EXAMINATION: GENERAL: The patient is a pleasant female who is complaining of some right lower extremity pain in no acute distress. VITAL SIGNS: Stable. She is afebrile. SKIN: Without generalized rash. HEENT: Within normal limits. NECK: Supple. LYMPH NODES: None palpable. CHEST: Decreased breath sounds at the bases. HEART: Without murmur or gallop. ABDOMEN: Soft, nontender, without organosplenomegaly or masses. EXTREMITIES: Without cyanosis or clubbing. She has bilateral pedal edema, worse on the right than the left. She has ulcerations on the right lower extremity with the largest being on the left later al lower calf. She has some interdigital ulcerations on the foot. No purulent drainage, but there is surrounding erythema and warmth. RECTAL AND GENITAL: Deferred. NEUROLOGICAL: No focal neurological abnormalities. IMAGING STUDIES: Chest x-ray: Lungs are clear. There is cardiomegaly, chronic deformity of the ri ght glenohumeral joint. HOSPITAL COURSE: On admission, her white count was 5.4, H and H of 10.2 and 34.1, platelet count 27 1,000. BUN and creatinine 29/0.72 with random glucose of 104. The patient is currently on vancomyc in. She is also on Zosyn. We will continue her on this regimen. She had a lower extremity CT felix ogram with widely patent distal aorta and bilateral iliac arteries, mild to moderate atherosclerotic plaques along the right lower extremity arteries. They remain widely patent, however, with 3-vesse l runoff into the right foot. There is diminished overall contrast opacification of the distal left foot arteries as compared with the right. There is a stent in the right common and external iliac veins. Patency of the stent cannot be determined to the arterial phase contrast, status post bilate ral knee arthroplasties, fusion of the right ankle hindfoot, medial midfoot. She has hysterectomy a nd lumbar spine posterior decompression and a moderate volume of retained stool in the colon. Chest x-ray showed clear lungs as noted previously, IMPRESSION AND PLAN: Continue the patient on current therapy with vancomycin and with Zosyn. I sourav arroyo dictate my findings to the hospitalist and to Dr. López. Dictated By: EMILY ARRIOLA MD, JD/OTONIEL Conf#: [id number] DID#: [id number]
[2017-02-01] MEDS ORDERED: LIDOCAINE 4% CR TOP ONE (16:00)
--- NOTE | 2017-02-01 19:23 | CONS ---
Date/Time of Note Date/Time of Note DATE: 02/01/17 TIME: 19:21 Consult Date/Type/Reason Admit Date/Time January 31, 2017 at 18:00 Initial Consult Date 01/31/17 Type of Consultation: Endovascular Cardiology Objective Vital Signs Date Time Temp Pulse Resp B/P Pulse Ox O2 Delivery O2 Flow Rate FiO2 02/01/17 07:45 98.0 83 20 129/59 95 01/31/17 18:57 Room Air Intake and Output 01/31/17 01/31/17 02/01/17 15:00 23:00 07:00 Intake Total 1350 ml 720 ml Output Total 400 ml Balance 1350 ml 320 ml Results/Medications Result Diagram: 02/01/17 0535 02/01/17 0535 Results 24 hrs Laboratory Tests Test 02/01/17 05:35 02/01/17 12:25 White Blood Count 4.3 #L Red Blood Count 3.48 L Hemoglobin 9.7 L Hematocrit 32.5 L Mean Corpuscular Volume 93.4 Mean Corpuscular Hemoglobin 27.9 L Mean Corpuscular Hemoglobin Concent 29.8 L Red Cell Distribution Width 14.1 Platelet Count 220 Mean Platelet Volume 10.9 H Neutrophils % 66.9 Lymphocytes % 18.8 Monocytes % 11.1 H Eosinophils % 2.8 Basophils % 0.2 Nucleated Red Blood Cells % 0.0 Neutrophils # 2.8 Lymphocytes # 0.8 Monocytes # 0.5 Eosinophils # 0.1 Basophils # 0.0 Nucleated Red Blood Cells # 0.0 Sodium Level 139 Potassium Level 4.1 Chloride Level 104 Carbon Dioxide Level 30 Anion Gap 9 Blood Urea Nitrogen 17 # Creatinine 0.56 Glucose Level 86 Hemoglobin A1c 5.3 Calcium Level 9.2 Magnesium Level 1.8 Total Bilirubin 0.1 L Direct Bilirubin 0.00 Indirect Bilirubin 0.1 Aspartate Amino Transf (AST/SGOT) 23 Alanine Aminotransferase (ALT/SGPT) 26 Alkaline Phosphatase 84 Total Protein 6.5 # Albumin 3.1 L Globulin 3.40 H Albumin/Globulin Ratio 0.91 Triglycerides Level 74 Cholesterol Level 127 LDL Cholesterol, Calculated 60 HDL Cholesterol 52 Cholesterol/HDL Ratio 2.4 Vitamin D 1,25-Dihydroxy < 12.8 L Medications Current Medications Ondansetron HCl (Zofran Inj) 4 mg Q6H PRN IV NAUSEA AND/OR VOMITING; Start at 23:30 Oxycodone/ Acetaminophen (Percocet (5/ 325)) 1 tab Q6H PRN PO MODERATE PAIN LEVEL 4-6 Last administered on 02/01/17 16:13; Admin Dose 1 TAB; Start at 23:30 Hydromorphone HCl (Dilaudid) 1 mg Q4H PRN IV SEVERE PAIN LEVEL 7-10 Last administered on 02/01/17 18:33; Admin Dose 1 MG; Start 01/31/17 at 23:30 Docusate Sodium (Colace) 100 mg Q12H PRN PO CONSTIPATION; Start 01/31/17 at 23: 30 Bisacodyl (Dulcolax) 5 mg DAILY PRN PO CONSTIPATION; Start 01/31/17 at 23:30 Enoxaparin Sodium 40 mg 40 mg DAILY SC Last administered on 02/01/17 09:11; Admin Dose 40 MG; Start 02/01/17 at 09:00 Vancomycin HCl (Vancocin) 250 ml @ 125 mls/hr Q12H IVPB Last administered on 17:53; Admin Dose 125 MLS/HR; Start 02/01/17 at 06:00 Aspirin (Halfprin) 81 mg DAILY PO Last administered on 02/01/17 08:38; Admin Dose 81 MG; Start 02/01/17 at 09:00 Clopidogrel Bisulfate (plaVIX) 75 mg DAILY PO Last administered on 02/01/17 08 :38; Admin Dose 75 MG; Start 02/01/17 at 09:00 Duloxetine HCl (Cymbalta) 20 mg DAILY PO Last administered on 02/01/17 09:17; Admin Dose 20 MG; Start 02/01/17 at 09:00 Furosemide (Lasix) 40 mg DAILY@06 PO ; Start 02/01/17 at 06:00 Prednisone (Prednisone) 5 mg DAILY PO Last administered on 02/01/17 08:38; Admin Dose 5 MG; Start 02/01/17 at 09:00 Trazodone HCl 50 mg 50 mg DAILY PO Last administered on 02/01/17 08:37; Admin Dose 50 MG; Start 02/01/17 at 09:00 Piperacillin Sod/ Tazobactam Sod (Zosyn 3.375gm/ 100 ml (Pmx)) 100 ml @ 200 mls /hr Q8H IVPB Last administered on 02/01/17t 16:14; Admin Dose 200 MLS/HR; Start 02/01/17 at 08:00 Pantoprazole (Protonix Tab) 40 mg DAILY@06 PO ; Start 02/02/17 at 06:00 Miscellaneous Information (*Rx Drug Level Order Reminder*) VANCOMYCIN TROUGH AT 0400 ONCE ONCE XX ; Start 02/02/17 at 04:00; Stop 02/02/17 at 04:01 Hydralazine HCl (Apresoline) 10 mg Q6H PRN IV SBP>160; Start 02/01/17 at 11:00 Cholecalciferol (Vitamin D) 1,000 unit DAILY PO ; Start 02/02/17 at 09:00 Assessment/Plan Chief Complaint/Hosp Course Patient is 76 year old F with PMH of HTN, HLD, PAD, Venous insufficiency has venous ablation befroe, also has PAD with stent in past. came in with non healing wound and infection for IV abs Problems: Additional Assessment/Plan Patient is stable ID on case podiatry for senior care abx planning I had long discussion with patient's family and herself plan to do out pt angiography of lower extremity with possible pedal loop revascularization. continue current management. MARCELLO LANGFORD MD February 01, 2017 19:23
[2017-02-01 19:26] VITALS: BP 129/60; RESP 18
--- NOTE | 2017-02-01 20:55 | PN ---
Date/Time of Note Date/Time of Note DATE: 02/01/17 TIME: 20:50 Assessment/Plan VTE Prophylaxis VTE Prophylaxis Intervention: SCD's Lines/Catheters IV Catheter Type (from Nrsg): Peripheral IV Assessment/Plan Assessment/Plan Cellulitis right foot/ ankle edema PAD Charcot post fusion status pantalar Gait abnormaility Pain RA Elevated ESR cont abx. appreciate id recs. BID chlorohexidine/ santyl. Pain management - lidocaine patch and topical. Monitor. Some improvement. Reviewed labs/ studies. Discussed with vasc. ELOS 2-3 days. Subjective 24 Hr Interval Summary Free Text/Dictation Right foot/ ankle cellulitis. Prior pantalar fusion/ charcot/ RA on vanco/ zosyn. Pain controlled. Denies f/n/v. Blood cx prelim neg. ESR elevated. Constitutional: other Exam/Review of Systems Vital Signs Vitals Vital Signs Date Time Temp Pulse Resp B/P Pulse Ox O2 Delivery O2 Flow Rate FiO2 02/01/17 19:26 98.4 77 18 129/60 91 01/31/17 18:57 Room Air Intake and Output 01/31/17 01/31/17 02/01/17 15:00 23:00 07:00 Intake Total 1350 ml 720 ml Output Total 400 ml Balance 1350 ml 320 ml Exam Constitutional: alert, oriented Psych: no complaints Respiratory: clear to auscultation, normal air movement Extremities: calf tenderness, normal pulses, pitting pedal edema Skin: other (ulceration plantar aspect right foot + cellulitis) Results Result Diagram: 02/01/17 0535 02/01/17 0535 Results 24 hrs Laboratory Tests Test 02/01/17 05:35 02/01/17 12:25 White Blood Count 4.3 #L Red Blood Count 3.48 L Hemoglobin 9.7 L Hematocrit 32.5 L Mean Corpuscular Volume 93.4 Mean Corpuscular Hemoglobin 27.9 L Mean Corpuscular Hemoglobin Concent 29.8 L Red Cell Distribution Width 14.1 Platelet Count 220 Mean Platelet Volume 10.9 H Neutrophils % 66.9 Lymphocytes % 18.8 Monocytes % 11.1 H Eosinophils % 2.8 Basophils % 0.2 Nucleated Red Blood Cells % 0.0 Neutrophils # 2.8 Lymphocytes # 0.8 Monocytes # 0.5 Eosinophils # 0.1 Basophils # 0.0 Nucleated Red Blood Cells # 0.0 Sodium Level 139 Potassium Level 4.1 Chloride Level 104 Carbon Dioxide Level 30 Anion Gap 9 Blood Urea Nitrogen 17 # Creatinine 0.56 Glucose Level 86 Hemoglobin A1c 5.3 Calcium Level 9.2 Magnesium Level 1.8 Total Bilirubin 0.1 L Direct Bilirubin 0.00 Indirect Bilirubin 0.1 Aspartate Amino Transf (AST/SGOT) 23 Alanine Aminotransferase (ALT/SGPT) 26 Alkaline Phosphatase 84 Total Protein 6.5 # Albumin 3.1 L Globulin 3.40 H Albumin/Globulin Ratio 0.91 Triglycerides Level 74 Cholesterol Level 127 LDL Cholesterol, Calculated 60 HDL Cholesterol 52 Cholesterol/HDL Ratio 2.4 Vitamin D 1,25-Dihydroxy < 12.8 L Medications Medications Current Medications Ondansetron HCl (Zofran Inj) 4 mg Q6H PRN IV NAUSEA AND/OR VOMITING; Start at 23:30 Oxycodone/ Acetaminophen (Percocet (5/ 325)) 1 tab Q6H PRN PO MODERATE PAIN LEVEL 4-6 Last administered on 02/01/17 16:13; Admin Dose 1 TAB; Start at 23:30 Hydromorphone HCl (Dilaudid) 1 mg Q4H PRN IV SEVERE PAIN LEVEL 7-10 Last administered on 02/01/17 18:33; Admin Dose 1 MG; Start 01/31/17 at 23:30 Docusate Sodium (Colace) 100 mg Q12H PRN PO CONSTIPATION; Start 01/31/17 at 23: 30 Bisacodyl (Dulcolax) 5 mg DAILY PRN PO CONSTIPATION; Start 01/31/17 at 23:30 Enoxaparin Sodium 40 mg 40 mg DAILY SC Last administered on 02/01/17 09:11; Admin Dose 40 MG; Start 02/01/17 at 09:00 Vancomycin HCl (Vancocin) 250 ml @ 125 mls/hr Q12H IVPB Last administered on 17:53; Admin Dose 125 MLS/HR; Start 02/01/17 at 06:00 Aspirin (Halfprin) 81 mg DAILY PO Last administered on 02/01/17 08:38; Admin Dose 81 MG; Start 02/01/17 at 09:00 Clopidogrel Bisulfate (plaVIX) 75 mg DAILY PO Last administered on 02/01/17 08 :38; Admin Dose 75 MG; Start 02/01/17 at 09:00 Duloxetine HCl (Cymbalta) 20 mg DAILY PO Last administered on 02/01/17 09:17; Admin Dose 20 MG; Start 02/01/17 at 09:00 Furosemide (Lasix) 40 mg DAILY@06 PO ; Start 02/01/17 at 06:00 Prednisone (Prednisone) 5 mg DAILY PO Last administered on 02/01/17 08:38; Admin Dose 5 MG; Start 02/01/17 at 09:00 Trazodone HCl 50 mg 50 mg DAILY PO Last administered on 02/01/17 08:37; Admin Dose 50 MG; Start 02/01/17 at 09:00 Piperacillin Sod/ Tazobactam Sod (Zosyn 3.375gm/ 100 ml (Pmx)) 100 ml @ 200 mls /hr Q8H IVPB Last administered on 02/01/17 16:14; Admin Dose 200 MLS/HR; Start 02/01/17 at 08:00 Pantoprazole (Protonix Tab) 40 mg DAILY@06 PO ; Start 02/02/17 at 06:00 Miscellaneous Information (*Rx Drug Level Order Reminder*) VANCOMYCIN TROUGH AT 0400 ONCE ONCE XX ; Start 02/02/17 at 04:00; Stop 02/02/17 at 04:01 Hydralazine HCl (Apresoline) 10 mg Q6H PRN IV SBP>160; Start 02/01/17 at 11:00 Cholecalciferol (Vitamin D) 1,000 unit DAILY PO ; Start 02/02/17 at 09:00 SIMA SARGENT DPM February 01, 2017 20:55
[2017-02-01] MEDS: COLLAGENASE 30 GM TUBE TOP SCH (21:19)
[2017-02-02] MEDS ORDERED: LORAZEPAM 2 MG INJ IV ONE ×2 (02:00→23:00)
[2017-02-02] MEDS ORDERED: DULOXETINE 20 MG CAP DR PO ONE (02:00)
[2017-02-02 04:00] LABS: ADD SCAN DIFF NO
[2017-02-02 04:07] LABS: BASOPHILS % 0.4 % (0.0-2.0); EOSINOPHILS # 0.1 10^3/ul (0.0-0.5); EOSINOPHILS % 1.3 % (0.0-7.0); HEMATOCRIT 36.8 % (37.0-47.0); HEMOGLOBIN 11.2 g/dl (12.0-16.0); LYMPHOCYTES # 0.8 10^3/ul (0.8-2.9); LYMPHOCYTES % 17.2 % (15.0-51.0); MEAN CORPUSCULAR HEMOGLOBIN 27.9 pg (29.0-33.0); MEAN CORPUSCULAR HGB CONC 30.4 g/dl (32.0-37.0); MEAN CORPUSCULAR VOLUME 91.8 fl (82.0-101.0); MEAN PLATELET VOLUME 10.8 fl (7.4-10.4); MONOCYTE # 0.4 10^3/ul (0.3-0.9); MONOCYTES % 8.1 % (0.0-11.0); NEUTROPHIL # 3.3 10^3/ul (1.6-7.5); NEUTROPHILS % 72.6 % (39.0-77.0); PLATELET COUNT 264 10^3/UL (140-415); RED BLOOD COUNT 4.01 10^6/ul (4.20-5.40); RED CELL DISTRIBUTION WIDTH 14.1 % (11.5-14.5); WHITE BLOOD COUNT 4.6 10^3/ul (4.8-10.8)
[2017-02-02] MEDS: HYDROmorphONE 1 MG/ML SYG IV PRN ×5 (04:18→23:40)
[2017-02-02 04:26] LABS: CREATININE 0.61 mg/dl (0.44-1.00)
[2017-02-02 04:27] LABS: CALCIUM 9.6 mg/dl (8.4-10.2)
[2017-02-02 04:28] LABS: MAGNESIUM 1.9 mg/dl (1.7-2.5); PHOSPHORUS 3.5 mg/dl (2.5-4.9)
[2017-02-02] MEDS: FUROSEMIDE 40 MG TAB PO SCH ×2 (06:00→09:29)
[2017-02-02] MEDS: PANTOPRAZOLE (EC) 40 MG TAB PO SCH ×2 (06:00→09:29)
[2017-02-02] MEDS: VANCOMYCIN 1 GM in NS 250 ML IVPB SCH ×2 (06:23→19:22)
[2017-02-02 07:42] VITALS: BP 176/86; RESP 16
[2017-02-02] MEDS: LIDOCAINE 5% PATCH TD SCH ×2 (09:00→20:58)
[2017-02-02] MEDS: traZODone 50 MG TAB PO SCH (09:28)
[2017-02-02] MEDS: CHOLECALCIFEROL 1,000 UNIT TAB PO SCH (09:29)
[2017-02-02] MEDS: PIPER-TAZO 3.375 GM IV (PMX) 100 ML IVPB SCH ×3 (09:29→23:39)
[2017-02-02] MEDS: ASPIRIN (EC) 81 MG TAB PO SCH (09:29)
[2017-02-02] MEDS: predniSONE 5 MG TAB PO SCH (09:29)
[2017-02-02] MEDS: CLOPIDOGREL 75 MG TAB PO SCH (09:29)
[2017-02-02] MEDS: ENOXAPARIN 40 MG/0.4 ML SYG SC SCH (10:53)
--- NOTE | 2017-02-02 13:49 | PN ---
DATE: 02/02/2017 SUBJECTIVE: No acute changes. The patient is alert, feels better. Looks comfortable, no fevers. LABORATORY DATA: WBC 4.6, no shift, no bands. BUN 12, creatinine 0.61. MICROBIOLOGY: Right foot wound culture pending. ANTIMICROBIALS: The patient is on: 1. IV vancomycin. 2. Zosyn. PHYSICAL EXAMINATION: GENERAL: Fragile, elderly woman in no distress. HEENT: Head atraumatic, normocephalic. Sclerae anicteric. Buccal mucosa pink. NECK: Supple. CHEST: Rise symmetrical. Breath sounds clear. HEART: S1, S2. ABDOMEN: Soft. Bowel sounds present. EXTREMITIES: With right foot dressing intact. ASSESSMENT: 1. Right foot and ankle cellulitis. 2. Right lower extremity Charcot, status post fusion. 3. Peripheral arterial disease. PLAN: Remains stable. Continue present care, antibiotics. Await for wound cultures and follow pod iatry recommendations. Dictated By: GERARDO MG ASSISTANT SCIENTIST for EMILY LAWSON/OTONIEL Conf#: [id number] DID#: [id number]
--- NOTE | 2017-02-02 14:42 | CONS ---
Date/Time of Note Date/Time of Note DATE: 02/02/17 TIME: 14:31 Consult Date/Type/Reason Admit Date/Time January 31, 2017 at 18:00 Initial Consult Date 01/31/17 Type of Consultation: Coverage for Dr. López. Reason for Consultation Right LE, foot, ankle cellulitls and ulcer, non-healing. Subjective Patient with Right LE cellulitis and ulcer, non-healing, due to PAD. H/O stent. H/O Charcot with sims-Talar fusion. RA. Patient is sensitive to pain. Need lidocaine patch and topical prior to any wound treatment. Objective Vital Signs Date Time Temp Pulse Resp B/P Pulse Ox O2 Delivery O2 Flow Rate FiO2 02/02/17 07:42 98.0 89 16 176/86 97 01/31/17 18:57 Room Air Intake and Output 02/01/17 02/01/17 02/02/17 15:00 23:00 07:00 Intake Total 350 ml 970 ml 540 ml Output Total 2200 ml 1200 ml Balance 350 ml -1230 ml -660 ml Exam Patient with Right LE cellulitis and ulcer, non-healing. Dressing was D/C/I. WBC: 5.4-->4.3--->4.6 ESR: 60 Micro: Gram stain, G+ cocci pairs and polymorph leukocytes. Blood Cx: Neg. Results/Medications Result Diagram: 02/02/17 0345 02/02/17 0345 Results 24 hrs Laboratory Tests Test 02/02/17 03:45 White Blood Count 4.6 L Red Blood Count 4.01 L Hemoglobin 11.2 L Hematocrit 36.8 L Mean Corpuscular Volume 91.8 Mean Corpuscular Hemoglobin 27.9 L Mean Corpuscular Hemoglobin Concent 30.4 L Red Cell Distribution Width 14.1 Platelet Count 264 Mean Platelet Volume 10.8 H Neutrophils % 72.6 Lymphocytes % 17.2 Monocytes % 8.1 Eosinophils % 1.3 Basophils % 0.4 Nucleated Red Blood Cells % 0.0 Neutrophils # 3.3 Lymphocytes # 0.8 Monocytes # 0.4 Eosinophils # 0.1 Basophils # 0.0 Nucleated Red Blood Cells # 0.0 Sodium Level 143 Potassium Level 4.0 Chloride Level 102 Carbon Dioxide Level 30 Anion Gap 15 Blood Urea Nitrogen 12 Creatinine 0.61 Glucose Level 85 Calcium Level 9.6 Phosphorus Level 3.5 Magnesium Level 1.9 Vancomycin Level Trough 13.0 Medications Current Medications Ondansetron HCl (Zofran Inj) 4 mg Q6H PRN IV NAUSEA AND/OR VOMITING; Start at 23:30 Oxycodone/ Acetaminophen (Percocet (5/ 325)) 1 tab Q6H PRN PO MODERATE PAIN LEVEL 4-6 Last administered on 02/01/17 23:25; Admin Dose 1 TAB; Start at 23:30 Hydromorphone HCl (Dilaudid) 1 mg Q4H PRN IV SEVERE PAIN LEVEL 7-10 Last administered on 02/02/17 13:29; Admin Dose 1 MG; Start 01/31/17 at 23:30 Docusate Sodium (Colace) 100 mg Q12H PRN PO CONSTIPATION; Start 01/31/17 at 23: 30 Bisacodyl (Dulcolax) 5 mg DAILY PRN PO CONSTIPATION; Start 01/31/17 at 23:30 Enoxaparin Sodium 40 mg 40 mg DAILY SC Last administered on 02/02/17 10:53; Admin Dose 40 MG; Start 02/01/17 at 09:00 Vancomycin HCl (Vancocin) 250 ml @ 125 mls/hr Q12H IVPB Last administered on 06:23; Admin Dose 125 MLS/HR; Start 02/01/17 at 06:00 Aspirin (Halfprin) 81 mg DAILY PO Last administered on 02/02/17 09:29; Admin Dose 81 MG; Start 02/01/17 at 09:00 Clopidogrel Bisulfate (plaVIX) 75 mg DAILY PO Last administered on 02/02/17 09 :29; Admin Dose 75 MG; Start 02/01/17 at 09:00 Furosemide (Lasix) 40 mg DAILY@06 PO Last administered on 02/02/17 09:29; Admin Dose 40 MG; Start 02/01/17 at 06:00 Prednisone (Prednisone) 5 mg DAILY PO Last administered on 02/02/17 09:29; Admin Dose 5 MG; Start 02/01/17 at 09:00 Trazodone HCl 50 mg 50 mg DAILY PO Last administered on 02/02/17 09:28; Admin Dose 50 MG; Start 02/01/17 at 09:00 Piperacillin Sod/ Tazobactam Sod (Zosyn 3.375gm/ 100 ml (Pmx)) 100 ml @ 200 mls /hr Q8H IVPB Last administered on 02/02/17 09:29; Admin Dose 200 MLS/HR; Start 02/01/17 at 08:00 Pantoprazole (Protonix Tab) 40 mg DAILY@06 PO Last administered on 02/02/17 09 :29; Admin Dose 40 MG; Start 02/02/17 at 06:00 Hydralazine HCl (Apresoline) 10 mg Q6H PRN IV SBP>160; Start 02/01/17 at 11:00 Cholecalciferol (Vitamin D) 1,000 unit DAILY PO Last administered on 02/02/17 09:29; Admin Dose 1,000 UNIT; Start 02/02/17 at 09:00 Lidocaine (Lidoderm) 1 patch DAILY TD ; Start 02/02/17 at 09:00 Collagenase (Santyl) 1 applic BID TOP Last administered on 02/01/17 21:19; Admin Dose 1 APPLIC; Start 02/01/17 at 21:00 Duloxetine HCl (Cymbalta) 20 mg QHS PO ; Start 02/02/17 at 21:00 Assessment/Plan Chief Complaint/Hosp Course Patient with Right LE cellulitis and ulcer, non-healing, due to PAD. H/O stent. H/O Charcot with sims-Talar fusion. RA. Patient is sensitive to pain. Need lidocaine patch and topical prior to any wound treatment. Plan: Wound care to Right LE. Lidocaine patch and topical. BID chlorohexidine wash and dressing with Santyl. IV Abx as per ID. Awaiting ID input in regards for need of PICC line and halfway abx at home. Pt to have outpt Angiogram. F/U with Dr. [facility]pez [facility]. Problems: Additional Assessment/Plan Continue local wound care as outlined above. Consider PICC line and termite control service representative Abx at home. Awaiting ID input. Vascular testing, angiogram, as out patient. F/U with Dr. López in [facility]. Discharge pending PCP/Hospitalist. KEO FREEMAN DPM February 02, 2017 14:41
[2017-02-02] MEDS: OXYCODONE/ACETAMINOPHEN (5/325) TAB PO PRN ×2 (15:47→22:38)
[2017-02-02] MEDS: COLLAGENASE 30 GM TUBE TOP SCH ×2 (16:30→20:58)
--- NOTE | 2017-02-02 17:30 | PN ---
Date/Time of Note Date/Time of Note DATE: 02/02/17 TIME: 17:28 Assessment/Plan VTE Prophylaxis VTE Prophylaxis Intervention: LMWH Lines/Catheters IV Catheter Type (from Nrs): Saline Lock Assessment/Plan Assessment/Plan 1. Right foot and ankle cellulitis. 2. Right lower extremity Charcot, status post fusion. 3. Peripheral arterial disease. Plan: woudn cx IV abx, ID following S/P podiatry follow up, recommended IV abx and wound care BP stable appreciate Podiatry and ID follow up Subjective 24 Hr Interval Summary Free Text/Dictation getting IV abx for RLE cellulitis, wound care Exam/Review of Systems Vital Signs Vitals Vital Signs Date Time Temp Pulse Resp B/P Pulse Ox O2 Delivery O2 Flow Rate FiO2 02/02/17 07:42 98.0 89 16 176/86 97 01/31/17 18:57 Room Air Intake and Output 02/01/17 02/01/17 02/02/17 15:00 23:00 07:00 Intake Total 350 ml 970 ml 540 ml Output Total 2200 ml 1200 ml Balance 350 ml -1230 ml -660 ml Exam GENERAL: Fragile, elderly woman in no distress. HEENT: Head atraumatic, normocephalic. Sclerae anicteric. Buccal mucosa pink. NECK: Supple. CHEST: Rise symmetrical. Breath sounds clear. HEART: S1, S2. ABDOMEN: Soft. Bowel sounds present. EXTREMITIES: With right foot dressing intact. Results Result Diagram: 02/02/17 0345 02/02/17 0345 Results 24 hrs Laboratory Tests Test 02/02/17 03:45 White Blood Count 4.6 L Red Blood Count 4.01 L Hemoglobin 11.2 L Hematocrit 36.8 L Mean Corpuscular Volume 91.8 Mean Corpuscular Hemoglobin 27.9 L Mean Corpuscular Hemoglobin Concent 30.4 L Red Cell Distribution Width 14.1 Platelet Count 264 Mean Platelet Volume 10.8 H Neutrophils % 72.6 Lymphocytes % 17.2 Monocytes % 8.1 Eosinophils % 1.3 Basophils % 0.4 Nucleated Red Blood Cells % 0.0 Neutrophils # 3.3 Lymphocytes # 0.8 Monocytes # 0.4 Eosinophils # 0.1 Basophils # 0.0 Nucleated Red Blood Cells # 0.0 Sodium Level 143 Potassium Level 4.0 Chloride Level 102 Carbon Dioxide Level 30 Anion Gap 15 Blood Urea Nitrogen 12 Creatinine 0.61 Glucose Level 85 Calcium Level 9.6 Phosphorus Level 3.5 Magnesium Level 1.9 Vancomycin Level Trough 13.0 Medications Medications Current Medications Ondansetron HCl (Zofran Inj) 4 mg Q6H PRN IV NAUSEA AND/OR VOMITING; Start at 23:30 Oxycodone/ Acetaminophen (Percocet (5/ 325)) 1 tab Q6H PRN PO MODERATE PAIN LEVEL 4-6 Last administered on 02/02/17 15:47; Admin Dose 1 TAB; Start at 23:30 Hydromorphone HCl (Dilaudid) 1 mg Q4H PRN IV SEVERE PAIN LEVEL 7-10 Last administered on 02/02/17 13:29; Admin Dose 1 MG; Start 01/31/17 at 23:30 Docusate Sodium (Colace) 100 mg Q12H PRN PO CONSTIPATION; Start 01/31/17 at 23: 30 Bisacodyl (Dulcolax) 5 mg DAILY PRN PO CONSTIPATION; Start 01/31/17 at 23:30 Enoxaparin Sodium 40 mg 40 mg DAILY SC Last administered on 02/02/17 10:53; Admin Dose 40 MG; Start 02/01/17 at 09:00 Vancomycin HCl (Vancocin) 250 ml @ 125 mls/hr Q12H IVPB Last administered on 06:23; Admin Dose 125 MLS/HR; Start 02/01/17 at 06:00 Aspirin (Halfprin) 81 mg DAILY PO Last administered on 02/02/17 09:29; Admin Dose 81 MG; Start 02/01/17 at 09:00 Clopidogrel Bisulfate (plaVIX) 75 mg DAILY PO Last administered on 02/02/17 09 :29; Admin Dose 75 MG; Start 02/01/17 at 09:00 Furosemide (Lasix) 40 mg DAILY@06 PO Last administered on 02/02/17 09:29; Admin Dose 40 MG; Start 02/01/17 at 06:00 Prednisone (Prednisone) 5 mg DAILY PO Last administered on 02/02/17 09:29; Admin Dose 5 MG; Start 02/01/17 at 09:00 Trazodone HCl 50 mg 50 mg DAILY PO Last administered on 02/02/17 09:28; Admin Dose 50 MG; Start 02/01/17 at 09:00 Piperacillin Sod/ Tazobactam Sod (Zosyn 3.375gm/ 100 ml (Pmx)) 100 ml @ 200 mls /hr Q8H IVPB Last administered on 02/02/17 16:29; Admin Dose 200 MLS/HR; Start 02/01/17 at 08:00 Pantoprazole (Protonix Tab) 40 mg DAILY@06 PO Last administered on 02/02/17 09 :29; Admin Dose 40 MG; Start 02/02/17 at 06:00 Hydralazine HCl (Apresoline) 10 mg Q6H PRN IV SBP>160; Start 02/01/17 at 11:00 Cholecalciferol (Vitamin D) 1,000 unit DAILY PO Last administered on 02/02/17 09:29; Admin Dose 1,000 UNIT; Start 02/02/17 at 09:00 Lidocaine (Lidoderm) 1 patch DAILY TD ; Start 02/02/17 at 09:00 Collagenase (Santyl) 1 applic BID TOP Last administered on 02/02/17 16:30; Admin Dose 1 APPLIC; Start 02/01/17 at 21:00 Duloxetine HCl (Cymbalta) 20 mg QHS PO ; Start 02/02/17 at 21:00 MARQUEZ BAUER MD February 02, 2017 17:30
[2017-02-02 18:23] VITALS: BP 138/79; PULSE 73; RESP 14
[2017-02-02 20:02] VITALS: BP 129/67; RESP 17
[2017-02-02] MEDS: DULOXETINE 20 MG CAP DR PO SCH (20:57)
[2017-02-03] MEDS: HYDROmorphONE 1 MG/ML SYG IV PRN ×5 (03:35→22:08)
[2017-02-03] MEDS: PANTOPRAZOLE (EC) 40 MG TAB PO SCH (05:43)
[2017-02-03] MEDS: FUROSEMIDE 40 MG TAB PO SCH (05:43)
[2017-02-03] MEDS: VANCOMYCIN 1 GM in NS 250 ML IVPB SCH ×2 (05:43→17:38)
[2017-02-03 05:44] VITALS: BP 119/74; PULSE 69
[2017-02-03 06:03] LABS: ADD SCAN DIFF NO
[2017-02-03 06:14] LABS: BASOPHILS % 0.6 % (0.0-2.0); EOSINOPHILS # 0.1 10^3/ul (0.0-0.5); HEMATOCRIT 34.4 % (37.0-47.0); HEMOGLOBIN 10.5 g/dl (12.0-16.0); LYMPHOCYTES # 0.7 10^3/ul (0.8-2.9); LYMPHOCYTES % 21.7 % (15.0-51.0); MEAN CORPUSCULAR HEMOGLOBIN 27.9 pg (29.0-33.0); MEAN CORPUSCULAR HGB CONC 30.5 g/dl (32.0-37.0); MEAN CORPUSCULAR VOLUME 91.5 fl (82.0-101.0); MEAN PLATELET VOLUME 11.2 fl (7.4-10.4); MONOCYTE # 0.4 10^3/ul (0.3-0.9); MONOCYTES % 13.5 % (0.0-11.0); NEUTROPHILS % 59.9 % (39.0-77.0); PLATELET COUNT 241 10^3/UL (140-415); RED BLOOD COUNT 3.76 10^6/ul (4.20-5.40); RED CELL DISTRIBUTION WIDTH 13.8 % (11.5-14.5); WHITE BLOOD COUNT 3.3 10^3/ul (4.8-10.8)
[2017-02-03 06:38] LABS: INR 1.14; PROTIME 14.6 Sec (12.2-14.2); PT RATIO 1.1
[2017-02-03 06:39] LABS: PARTIAL THROMBOPLASTIN TIME 32.8 Sec (25.0-35.0)
[2017-02-03 06:52] LABS: ALBUMIN 3.1 g/dl (3.3-4.9); ALBUMIN/GLOBULIN RATIO 0.91; BILIRUBIN,INDIRECT 0.2 mg/dl (0-1.1); BILIRUBIN,TOTAL 0.2 mg/dl (0.2-1.3); CALCIUM 9.1 mg/dl (8.4-10.2); CREATININE 0.6 mg/dl (0.44-1.00); POTASSIUM 3.7 mmol/L (3.5-5.1); TOTAL PROTEIN 6.5 g/dl (6.1-8.1)
[2017-02-03 07:32] VITALS: BP 155/71; PULSE 78; RESP 12
[2017-02-03 07:50] VITALS: BP 155/71; RESP 18
[2017-02-03] MEDS: predniSONE 5 MG TAB PO SCH (08:44)
[2017-02-03] MEDS: CHOLECALCIFEROL 1,000 UNIT TAB PO SCH (08:44)
[2017-02-03] MEDS: CLOPIDOGREL 75 MG TAB PO SCH (08:44)
[2017-02-03] MEDS: ASPIRIN (EC) 81 MG TAB PO SCH (08:44)
[2017-02-03] MEDS: ENOXAPARIN 40 MG/0.4 ML SYG SC SCH (08:53)
[2017-02-03] MEDS: traZODone 50 MG TAB PO SCH (08:55)
[2017-02-03] MEDS: PIPER-TAZO 3.375 GM IV (PMX) 100 ML IVPB SCH ×2 (09:04→15:30)
[2017-02-03] MEDS: COLLAGENASE 30 GM TUBE TOP SCH ×2 (09:05→20:53)
[2017-02-03] MEDS: OXYCODONE/ACETAMINOPHEN (5/325) TAB PO PRN (15:30)
[2017-02-03] MEDS: LIDOCAINE 5% PATCH TD SCH (15:30)
[2017-02-03 16:00] VITALS: BP 133/65; PULSE 84; RESP 14
--- NOTE | 2017-02-03 17:46 | PN ---
Date/Time of Note Date/Time of Note DATE: 02/03/17 TIME: 17:41 Assessment/Plan VTE Prophylaxis VTE Prophylaxis Intervention: SCD's Lines/Catheters IV [facility] Saline Lock Assessment/Plan Chief Complaint/Hosp Course Cellulitis Polymicrobial infection Charcot Venous stasis with ulceration PAD RA DM2 D/c planning. Cont. current wound therapy. Daily cleansing and santyl. Send orders to her [employer]. Rec. 2 weeks abx. Appreciate ID recs. F/u as outpatient. Problems: Subjective 24 Hr Interval Summary Free Text/Dictation Right foot abscess/ cellulitis/ venous ulceration polymicrobial growth. Denies f /n/v. Tolerating meds well. Constitutional: no complaints Respiratory: no complaints Musculoskeletal: bone/joint pain (right foot charcot deformity/ ulcerations) Exam/Review of Systems Vital Signs Vitals Vital Signs Date Time Temp Pulse Resp B/P Pulse Ox O2 Delivery O2 Flow Rate FiO2 02/03/17 16:00 98.3 84 14 133/65 92 Room Air Intake and Output 02/02/17 02/02/17 02/03/17 15:00 23:00 07:00 Intake Total 350 ml 1190 ml 680 ml Output Total 1900 ml 400 ml Balance 350 ml -710 ml 280 ml Results Result Diagram: 02/03/17 0510 02/03/17 0510 Results 24 hrs Laboratory Tests Test 02/03/17 05:10 White Blood Count 3.3 #L Red Blood Count 3.76 L Hemoglobin 10.5 L Hematocrit 34.4 L Mean Corpuscular Volume 91.5 Mean Corpuscular Hemoglobin 27.9 L Mean Corpuscular Hemoglobin Concent 30.5 L Red Cell Distribution Width 13.8 Platelet Count 241 Mean Platelet Volume 11.2 H Neutrophils % 59.9 Lymphocytes % 21.7 Monocytes % 13.5 H Eosinophils % 4.0 Basophils % 0.6 Nucleated Red Blood Cells % 0.0 Neutrophils # 2.0 Lymphocytes # 0.7 L Monocytes # 0.4 Eosinophils # 0.1 Basophils # 0.0 Nucleated Red Blood Cells # 0.0 Prothrombin Time 14.6 H Prothrombin Time Ratio 1.1 INR International Normalized Ratio 1.14 Activated Partial Thromboplast Time 32.8 Sodium Level 138 Potassium Level 3.7 Chloride Level 102 Carbon Dioxide Level 32 H Anion Gap 8 Blood Urea Nitrogen 12 Creatinine 0.60 Glucose Level 90 Calcium Level 9.1 Total Bilirubin 0.2 Direct Bilirubin 0.00 Indirect Bilirubin 0.2 Aspartate Amino Transf (AST/SGOT) 24 Alanine Aminotransferase (ALT/SGPT) 23 Alkaline Phosphatase 77 Total Protein 6.5 Albumin 3.1 L Globulin 3.40 H Albumin/Globulin Ratio 0.91 Medications Medications Current Medications Ondansetron HCl (Zofran Inj) 4 mg Q6H PRN IV NAUSEA AND/OR VOMITING; Start at 23:30 Oxycodone/ Acetaminophen (Percocet (5/ 325)) 1 tab Q6H PRN PO MODERATE PAIN LEVEL 4-6 Last administered on 02/03/17 15:30; Admin Dose 1 TAB; Start at 23:30 Hydromorphone HCl (Dilaudid) 1 mg Q4H PRN IV SEVERE PAIN LEVEL 7-10 Last administered on 02/03/17 17:39; Admin Dose 1 MG; Start 01/31/17 at 23:30 Docusate Sodium (Colace) 100 mg Q12H PRN PO CONSTIPATION; Start 01/31/17 at 23: 30 Bisacodyl (Dulcolax) 5 mg DAILY PRN PO CONSTIPATION; Start 01/31/17 at 23:30 Enoxaparin Sodium 40 mg 40 mg DAILY SC Last administered on 02/03/17 08:53; Admin Dose 40 MG; Start 02/01/17 at 09:00 Vancomycin HCl (Vancocin) 250 ml @ 125 mls/hr Q12H IVPB Last administered on 17:38; Admin Dose 125 MLS/HR; Start 02/01/17 at 06:00 Aspirin (Halfprin) 81 mg DAILY PO Last administered on 02/03/17 08:44; Admin Dose 81 MG; Start 02/01/17 at 09:00 Clopidogrel Bisulfate (plaVIX) 75 mg DAILY PO Last administered on 02/03/17 08 :44; Admin Dose 75 MG; Start 02/01/17 at 09:00 Furosemide (Lasix) 40 mg DAILY@06 PO Last administered on 02/03/17 05:43; Admin Dose 40 MG; Start 02/01/17 at 06:00 Prednisone (Prednisone) 5 mg DAILY PO Last administered on 02/03/17 08:44; Admin Dose 5 MG; Start 02/01/17 at 09:00 Trazodone HCl 50 mg 50 mg DAILY PO Last administered on 02/02/17 09:28; Admin Dose 50 MG; Start 02/01/17 at 09:00 Piperacillin Sod/ Tazobactam Sod (Zosyn 3.375gm/ 100 ml (Pmx)) 100 ml @ 200 mls /hr Q8H IVPB Last administered on 02/03/17 15:30; Admin Dose 200 MLS/HR; Start 02/01/17 at 08:00 Pantoprazole (Protonix Tab) 40 mg DAILY@06 PO Last administered on 02/03/17 05 :43; Admin Dose 40 MG; Start 02/02/17 at 06:00 Hydralazine HCl (Apresoline) 10 mg Q6H PRN IV SBP>160; Start 02/01/17 at 11:00 Cholecalciferol (Vitamin D) 1,000 unit DAILY PO Last administered on 02/03/17 08:44; Admin Dose 1,000 UNIT; Start 02/02/17 at 09:00 Lidocaine (Lidoderm) 1 patch DAILY TD Last administered on 02/03/17 15:30; Admin Dose 1 PATCH; Start 02/02/17 at 09:00 Collagenase (Santyl) 1 applic BID TOP Last administered on 02/03/17 09:05; Admin Dose 1 APPLIC; Start 02/01/17 at 21:00 Duloxetine HCl (Cymbalta) 20 mg QHS PO Last administered on 02/02/17 20:57; Admin Dose 20 MG; Start 02/02/17 at 21:00 SIMA SARGENT DPM February 03, 2017 17:46
--- NOTE | 2017-02-03 18:23 | CONS ---
Date/Time of Note Date/Time of Note DATE: 02/03/17 TIME: 18:22 Assessment/Plan Assessment/Plan Chief Complaint/Hosp Course SUBJECTIVE: No acute changes. The patient is alert, feels ok. Looks comfortable, no fevers. MICROBIOLOGY: Right foot wound culture growing multiple bacteria ANTIMICROBIALS: 1. IV vancomycin. 2. Zosyn. PHYSICAL EXAMINATION: GENERAL: Fragile, elderly woman in no distress. HEENT: Head atraumatic, normocephalic. Sclerae anicteric. Buccal mucosa pink. NECK: Supple. CHEST: Rise symmetrical. Breath sounds clear. HEART: S1, S2. ABDOMEN: Soft. Bowel sounds present. EXTREMITIES: With right foot dressing intact. ASSESSMENT: 1. Right foot and ankle cellulitis. 2. Right lower extremity Charcot, status post fusion. 3. Peripheral arterial disease. PLAN: Remains stable. Continue present care, antibiotics. Await for final wound cultures and follow podiatry recommendations. IVA pt/staff Problems: Consultation Date/Type/Reason Admit Date/Time January 31, 2017 at 18:00 Initial Consult Date 01/31/17 Type of Consultation: ID Exam/Review of Systems Vital Signs Vitals Vital Signs Date Time Temp Pulse Resp B/P Pulse Ox O2 Delivery O2 Flow Rate FiO2 02/03/17 16:00 98.3 84 14 133/65 92 Room Air Intake and Output 02/02/17 02/02/17 02/03/17 15:00 23:00 07:00 Intake Total 350 ml 1190 ml 680 ml Output Total 1900 ml 400 ml Balance 350 ml -710 ml 280 ml Results Result Diagram: 02/03/17 0510 02/03/17 0510 Results 24 hrs Laboratory Tests Test 02/03/17 05:10 White Blood Count 3.3 #L Red Blood Count 3.76 L Hemoglobin 10.5 L Hematocrit 34.4 L Mean Corpuscular Volume 91.5 Mean Corpuscular Hemoglobin 27.9 L Mean Corpuscular Hemoglobin Concent 30.5 L Red Cell Distribution Width 13.8 Platelet Count 241 Mean Platelet Volume 11.2 H Neutrophils % 59.9 Lymphocytes % 21.7 Monocytes % 13.5 H Eosinophils % 4.0 Basophils % 0.6 Nucleated Red Blood Cells % 0.0 Neutrophils # 2.0 Lymphocytes # 0.7 L Monocytes # 0.4 Eosinophils # 0.1 Basophils # 0.0 Nucleated Red Blood Cells # 0.0 Prothrombin Time 14.6 H Prothrombin Time Ratio 1.1 INR International Normalized Ratio 1.14 Activated Partial Thromboplast Time 32.8 Sodium Level 138 Potassium Level 3.7 Chloride Level 102 Carbon Dioxide Level 32 H Anion Gap 8 Blood Urea Nitrogen 12 Creatinine 0.60 Glucose Level 90 Calcium Level 9.1 Total Bilirubin 0.2 Direct Bilirubin 0.00 Indirect Bilirubin 0.2 Aspartate Amino Transf (AST/SGOT) 24 Alanine Aminotransferase (ALT/SGPT) 23 Alkaline Phosphatase 77 Total Protein 6.5 Albumin 3.1 L Globulin 3.40 H Albumin/Globulin Ratio 0.91 Medications Medications Current Medications Ondansetron HCl (Zofran Inj) 4 mg Q6H PRN IV NAUSEA AND/OR VOMITING; Start at 23:30 Oxycodone/ Acetaminophen (Percocet (5/ 325)) 1 tab Q6H PRN PO MODERATE PAIN LEVEL 4-6 Last administered on 02/03/17 15:30; Admin Dose 1 TAB; Start at 23:30 Hydromorphone HCl (Dilaudid) 1 mg Q4H PRN IV SEVERE PAIN LEVEL 7-10 Last administered on 02/03/17 17:39; Admin Dose 1 MG; Start 01/31/17 at 23:30 Docusate Sodium (Colace) 100 mg Q12H PRN PO CONSTIPATION; Start 01/31/17 at 23: 30 Bisacodyl (Dulcolax) 5 mg DAILY PRN PO CONSTIPATION; Start 01/31/17 at 23:30 Enoxaparin Sodium 40 mg 40 mg DAILY SC Last administered on 02/03/17 08:53; Admin Dose 40 MG; Start 02/01/17 at 09:00 Vancomycin HCl (Vancocin) 250 ml @ 125 mls/hr Q12H IVPB Last administered on 17:38; Admin Dose 125 MLS/HR; Start 02/01/17 at 06:00 Aspirin (Halfprin) 81 mg DAILY PO Last administered on 02/03/17 08:44; Admin Dose 81 MG; Start 02/01/17 at 09:00 Clopidogrel Bisulfate (plaVIX) 75 mg DAILY PO Last administered on 02/03/17 08 :44; Admin Dose 75 MG; Start 02/01/17 at 09:00 Furosemide (Lasix) 40 mg DAILY@06 PO Last administered on 02/03/17 05:43; Admin Dose 40 MG; Start 02/01/17 at 06:00 Prednisone (Prednisone) 5 mg DAILY PO Last administered on 02/03/17 08:44; Admin Dose 5 MG; Start 02/01/17 at 09:00 Trazodone HCl 50 mg 50 mg DAILY PO Last administered on 02/02/17 09:28; Admin Dose 50 MG; Start 02/01/17 at 09:00 Piperacillin Sod/ Tazobactam Sod (Zosyn 3.375gm/ 100 ml (Pmx)) 100 ml @ 200 mls /hr Q8H IVPB Last administered on 02/03/17 15:30; Admin Dose 200 MLS/HR; Start 02/01/17 at 08:00 Pantoprazole (Protonix Tab) 40 mg DAILY@06 PO Last administered on 02/03/17 05 :43; Admin Dose 40 MG; Start 02/02/17 at 06:00 Hydralazine HCl (Apresoline) 10 mg Q6H PRN IV SBP>160; Start 02/01/17 at 11:00 Cholecalciferol (Vitamin D) 1,000 unit DAILY PO Last administered on 02/03/17 08:44; Admin Dose 1,000 UNIT; Start 02/02/17 at 09:00 Lidocaine (Lidoderm) 1 patch DAILY TD Last administered on 02/03/17 15:30; Admin Dose 1 PATCH; Start 02/02/17 at 09:00 Collagenase (Santyl) 1 applic BID TOP Last administered on 02/03/17 09:05; Admin Dose 1 APPLIC; Start 02/01/17 at 21:00 Duloxetine HCl (Cymbalta) 20 mg QHS PO Last administered on 02/02/17 20:57; Admin Dose 20 MG; Start 02/02/17 at 21:00 GERARDO MG NP February 03, 2017 18:23
[2017-02-03 20:28] VITALS: BP 116/60; RESP 18
[2017-02-03] MEDS: DULOXETINE 20 MG CAP DR PO SCH ×2 (20:53→22:16)
--- NOTE | 2017-02-03 22:57 | PN ---
Date/Time of Note Date/Time of Note DATE: 02/03/17 TIME: 22:55 Assessment/Plan VTE Prophylaxis VTE Prophylaxis Intervention: LMWH Lines/Catheters IV Catheter Type (from Nrs): Saline Lock Assessment/Plan Assessment/Plan 1. Right foot and ankle cellulitis. 2. Right lower extremity Charcot, status post fusion. 3. Peripheral arterial disease. Plan: woudn cx grew Gram neg rods, Enterococcus, staphylococcus, streptococcus final result pending IV abx, ID following S/P podiatry follow up, recommended 2 weeks of IV abx and wound care BP stable Lovenox for DVT prophylaxis appreciate Podiatry and ID follow up Subjective 24 Hr Interval Summary Free Text/Dictation s/p Podiatry follow up, recommedned for 2 weeks of iV abx, final wound Cx pending Exam/Review of Systems Vital Signs Vitals Vital Signs Date Time Temp Pulse Resp B/P Pulse Ox O2 Delivery O2 Flow Rate FiO2 02/03/17 20:28 98.6 78 18 116/60 93 02/03/17 16:00 Room Air Intake and Output 02/02/17 02/02/17 02/03/17 15:00 23:00 07:00 Intake Total 350 ml 1190 ml 680 ml Output Total 1900 ml 400 ml Balance 350 ml -710 ml 280 ml Exam GENERAL: Fragile, elderly woman in no distress. HEENT: Head atraumatic, normocephalic. Sclerae anicteric. Buccal mucosa pink. NECK: Supple. CHEST: Rise symmetrical. Breath sounds clear. HEART: S1, S2. ABDOMEN: Soft. Bowel sounds present. EXTREMITIES: With right foot dressing intact. Results Result Diagram: 02/03/17 0510 02/03/17 0510 Results 24 hrs Laboratory Tests Test 02/03/17 05:10 White Blood Count 3.3 #L Red Blood Count 3.76 L Hemoglobin 10.5 L Hematocrit 34.4 L Mean Corpuscular Volume 91.5 Mean Corpuscular Hemoglobin 27.9 L Mean Corpuscular Hemoglobin Concent 30.5 L Red Cell Distribution Width 13.8 Platelet Count 241 Mean Platelet Volume 11.2 H Neutrophils % 59.9 Lymphocytes % 21.7 Monocytes % 13.5 H Eosinophils % 4.0 Basophils % 0.6 Nucleated Red Blood Cells % 0.0 Neutrophils # 2.0 Lymphocytes # 0.7 L Monocytes # 0.4 Eosinophils # 0.1 Basophils # 0.0 Nucleated Red Blood Cells # 0.0 Prothrombin Time 14.6 H Prothrombin Time Ratio 1.1 INR International Normalized Ratio 1.14 Activated Partial Thromboplast Time 32.8 Sodium Level 138 Potassium Level 3.7 Chloride Level 102 Carbon Dioxide Level 32 H Anion Gap 8 Blood Urea Nitrogen 12 Creatinine 0.60 Glucose Level 90 Calcium Level 9.1 Total Bilirubin 0.2 Direct Bilirubin 0.00 Indirect Bilirubin 0.2 Aspartate Amino Transf (AST/SGOT) 24 Alanine Aminotransferase (ALT/SGPT) 23 Alkaline Phosphatase 77 Total Protein 6.5 Albumin 3.1 L Globulin 3.40 H Albumin/Globulin Ratio 0.91 Medications Medications Current Medications Ondansetron HCl (Zofran Inj) 4 mg Q6H PRN IV NAUSEA AND/OR VOMITING; Start at 23:30 Oxycodone/ Acetaminophen (Percocet (5/ 325)) 1 tab Q6H PRN PO MODERATE PAIN LEVEL 4-6 Last administered on 02/03/17 15:30; Admin Dose 1 TAB; Start at 23:30 Hydromorphone HCl (Dilaudid) 1 mg Q4H PRN IV SEVERE PAIN LEVEL 7-10 Last administered on 02/03/17 22:08; Admin Dose 1 MG; Start 01/31/17 at 23:30 Docusate Sodium (Colace) 100 mg Q12H PRN PO CONSTIPATION; Start 01/31/17 at 23: 30 Bisacodyl (Dulcolax) 5 mg DAILY PRN PO CONSTIPATION; Start 01/31/17 at 23:30 Enoxaparin Sodium 40 mg 40 mg DAILY SC Last administered on 02/03/17 08:53; Admin Dose 40 MG; Start 02/01/17 at 09:00 Vancomycin HCl (Vancocin) 250 ml @ 125 mls/hr Q12H IVPB Last administered on 17:38; Admin Dose 125 MLS/HR; Start 02/01/17 at 06:00 Aspirin (Halfprin) 81 mg DAILY PO Last administered on 02/03/17 08:44; Admin Dose 81 MG; Start 02/01/17 at 09:00 Clopidogrel Bisulfate (plaVIX) 75 mg DAILY PO Last administered on 02/03/17 08 :44; Admin Dose 75 MG; Start 02/01/17 at 09:00 Furosemide (Lasix) 40 mg DAILY@06 PO Last administered on 02/03/17 05:43; Admin Dose 40 MG; Start 02/01/17 at 06:00 Prednisone (Prednisone) 5 mg DAILY PO Last administered on 02/03/17 08:44; Admin Dose 5 MG; Start 02/01/17 at 09:00 Trazodone HCl 50 mg 50 mg DAILY PO Last administered on 02/02/17 09:28; Admin Dose 50 MG; Start 02/01/17 at 09:00 Piperacillin Sod/ Tazobactam Sod (Zosyn 3.375gm/ 100 ml (Pmx)) 100 ml @ 200 mls /hr Q8H IVPB Last administered on 02/03/17 15:30; Admin Dose 200 MLS/HR; Start 02/01/17 at 08:00 Pantoprazole (Protonix Tab) 40 mg DAILY@06 PO Last administered on 02/03/17 05 :43; Admin Dose 40 MG; Start 02/02/17 at 06:00 Hydralazine HCl (Apresoline) 10 mg Q6H PRN IV SBP>160; Start 02/01/17 at 11:00 Cholecalciferol (Vitamin D) 1,000 unit DAILY PO Last administered on 02/03/17 08:44; Admin Dose 1,000 UNIT; Start 02/02/17 at 09:00 Lidocaine (Lidoderm) 1 patch DAILY TD Last administered on 02/03/17 15:30; Admin Dose 1 PATCH; Start 02/02/17 at 09:00 Collagenase (Santyl) 1 applic BID TOP Last administered on 02/03/17 09:05; Admin Dose 1 APPLIC; Start 02/01/17 at 21:00 Duloxetine HCl (Cymbalta) 20 mg QHS PO Last administered on 02/03/17 22:16; Admin Dose 20 MG; Start 02/02/17 at 21:00 MARQUEZ BAUER MD February 03, 2017 22:57
[2017-02-04] MEDS: PIPER-TAZO 3.375 GM IV (PMX) 100 ML IVPB SCH ×4 (00:06→23:29)
[2017-02-04] MEDS: HYDROmorphONE 1 MG/ML SYG IV PRN ×5 (02:43→22:17)
[2017-02-04] MEDS: OXYCODONE/ACETAMINOPHEN (5/325) TAB PO PRN ×3 (03:44→16:28)
[2017-02-04] MEDS ORDERED: HYDROmorphONE 1 MG/ML SYG IV ONE (05:18)
[2017-02-04] MEDS: PANTOPRAZOLE (EC) 40 MG TAB PO SCH (05:21)
[2017-02-04] MEDS: VANCOMYCIN 1 GM in NS 250 ML IVPB SCH ×2 (05:21→18:17)
[2017-02-04] MEDS: FUROSEMIDE 40 MG TAB PO SCH (05:22)
[2017-02-04] MEDS: COLLAGENASE 30 GM TUBE TOP SCH ×2 (06:13→21:00)
[2017-02-04 07:56] VITALS: BP 131/73; RESP 18
[2017-02-04] MEDS: ASPIRIN (EC) 81 MG TAB PO SCH (09:00)
[2017-02-04] MEDS: CHOLECALCIFEROL 1,000 UNIT TAB PO SCH (09:00)
[2017-02-04] MEDS: LIDOCAINE 5% PATCH TD SCH (09:00)
[2017-02-04] MEDS: traZODone 50 MG TAB PO SCH (09:00)
[2017-02-04] MEDS: CLOPIDOGREL 75 MG TAB PO SCH (09:00)
[2017-02-04] MEDS: predniSONE 5 MG TAB PO SCH (09:00)
[2017-02-04] MEDS: ENOXAPARIN 40 MG/0.4 ML SYG SC SCH (09:01)
--- NOTE | 2017-02-04 12:44 | PN ---
Date/Time of Note Date/Time of Note DATE: 02/04/17 TIME: 12:43 Assessment/Plan VTE Prophylaxis VTE Prophylaxis Intervention: LMWH Lines/Catheters IV Catheter Type (from Nrsg): Saline Lock Assessment/Plan Assessment/Plan 1. Right foot and ankle cellulitis. 2. Right lower extremity Charcot, status post fusion. 3. Peripheral arterial disease. Plan: woudn cx grew Gram neg rods, Enterococcus, staphylococcus, streptococcus final result pending IV abx, ID following S/P podiatry follow up, recommended 2 weeks of IV abx and wound care BP stable Lovenox for DVT prophylaxis appreciate Podiatry and ID follow up Subjective 24 Hr Interval Summary Free Text/Dictation leg pain improving, BP stabel Exam/Review of Systems Vital Signs Vitals Vital Signs Date Time Temp Pulse Resp B/P Pulse Ox O2 Delivery O2 Flow Rate FiO2 02/04/17 07:56 98.2 79 18 131/73 93 02/03/17 16:00 Room Air Intake and Output 02/03/17 02/03/17 02/04/17 15:00 23:00 07:00 Intake Total 250 ml 1650 ml 905 ml Output Total 1600 ml Balance 250 ml 1650 ml -695 ml Exam GENERAL: Fragile, elderly woman in no distress. HEENT: Head atraumatic, normocephalic. Sclerae anicteric. Buccal mucosa pink. NECK: Supple. CHEST: Rise symmetrical. Breath sounds clear. HEART: S1, S2. ABDOMEN: Soft. Bowel sounds present. EXTREMITIES: With right foot dressing intact. Results Result Diagram: 02/03/17 0510 02/03/17509 Medications Medications Current Medications Ondansetron HCl (Zofran Inj) 4 mg Q6H PRN IV NAUSEA AND/OR VOMITING; Start at 23:30 Oxycodone/ Acetaminophen (Percocet (5/ 325)) 1 tab Q6H PRN PO MODERATE PAIN LEVEL 4-6 Last administered on 02/04/17 10:20; Admin Dose 1 TAB; Start at 23:30 Hydromorphone HCl (Dilaudid) 1 mg Q4H PRN IV SEVERE PAIN LEVEL 7-10 Last administered on 02/04/17 09:01; Admin Dose 1 MG; Start 01/31/17 at 23:30 Docusate Sodium (Colace) 100 mg Q12H PRN PO CONSTIPATION; Start 01/31/17 at 23: 30 Bisacodyl (Dulcolax) 5 mg DAILY PRN PO CONSTIPATION; Start 01/31/17 at 23:30 Enoxaparin Sodium 40 mg 40 mg DAILY SC Last administered on 02/04/17 09:01; Admin Dose 40 MG; Start 02/01/17 at 09:00 Vancomycin HCl (Vancocin) 250 ml @ 125 mls/hr Q12H IVPB Last administered on 05:21; Admin Dose 125 MLS/HR; Start 02/01/17 at 06:00 Aspirin (Halfprin) 81 mg DAILY PO Last administered on 02/04/17 09:00; Admin Dose 81 MG; Start 02/01/17 at 09:00 Clopidogrel Bisulfate (plaVIX) 75 mg DAILY PO Last administered on 02/04/17 09 :00; Admin Dose 75 MG; Start 02/01/17 at 09:00 Furosemide (Lasix) 40 mg DAILY@06 PO Last administered on 02/03/17 05:43; Admin Dose 40 MG; Start 02/01/17 at 06:00 Prednisone (Prednisone) 5 mg DAILY PO Last administered on 02/04/17 09:00; Admin Dose 5 MG; Start 02/01/17 at 09:00 Trazodone HCl 50 mg 50 mg DAILY PO Last administered on 02/02/17 09:28; Admin Dose 50 MG; Start 02/01/17 at 09:00 Piperacillin Sod/ Tazobactam Sod (Zosyn 3.375gm/ 100 ml (Pmx)) 100 ml @ 200 mls /hr Q8H IVPB Last administered on 02/04/17 08:59; Admin Dose 200 MLS/HR; Start 02/01/17 at 08:00 Pantoprazole (Protonix Tab) 40 mg DAILY@06 PO Last administered on 02/04/17 05 :21; Admin Dose 40 MG; Start 02/02/17 at 06:00 Hydralazine HCl (Apresoline) 10 mg Q6H PRN IV SBP>160; Start 02/01/17 at 11:00 Cholecalciferol (Vitamin D) 1,000 unit DAILY PO Last administered on 02/04/17 09:00; Admin Dose 1,000 UNIT; Start 02/02/17 at 09:00 Lidocaine (Lidoderm) 1 patch DAILY TD Last administered on 02/03/17 15:30; Admin Dose 1 PATCH; Start 02/02/17 at 09:00 Collagenase (Santyl) 1 applic BID TOP Last administered on 02/04/17 06:13; Admin Dose 1 APPLIC; Start 02/01/17 at 21:00 Duloxetine HCl (Cymbalta) 20 mg QHS PO Last administered on 02/03/17 22:16; Admin Dose 20 MG; Start 02/02/17 at 21:00 Miscellaneous Information (*Rx Drug Level Order Reminder*) VANCOMYCIN TROUGH AT 0,500 ON... ONCE ONCE XX ; Start 02/05/17 at 05:00; Stop 02/05/17 at 05:01 MARQUEZ BAUER MD February 04, 2017 12:44
--- NOTE | 2017-02-04 13:01 | PN ---
Date/Time of Note Date/Time of Note DATE: 02/04/17 TIME: 12:58 Assessment/Plan VTE Prophylaxis VTE Prophylaxis Intervention: LMWH Lines/Catheters IV Catheter Type (from Nrsg): Saline Lock Assessment/Plan Assessment/Plan 1. Right foot and ankle cellulitis. 2. Right lower extremity Charcot, status post fusion. 3. Peripheral arterial disease. Plan: woudn cx grew Gram neg rods, Enterococcus, staphylococcus, streptococcus final result pending IV abx, ID following S/P podiatry follow up, recommended 2 weeks of IV abx and wound care BP stable Lovenox for DVT prophylaxis appreciate Podiatry and ID follow up Subjective 24 Hr Interval Summary Free Text/Dictation pt stable, afebrile,wants to go home but waititnf for ID recommendations Exam/Review of Systems Vital Signs Vitals Vital Signs Date Time Temp Pulse Resp B/P Pulse Ox O2 Delivery O2 Flow Rate FiO2 02/04/17 07:56 98.2 79 18 131/73 93 02/03/17 16:00 Room Air Intake and Output 02/03/17 02/03/17 02/04/17 15:00 23:00 07:00 Intake Total 250 ml 1650 ml 905 ml Output Total 1600 ml Balance 250 ml 1650 ml -695 ml Exam GENERAL: Fragile, elderly woman in no distress. HEENT: Head atraumatic, normocephalic. Sclerae anicteric. Buccal mucosa pink. NECK: Supple. CHEST: Rise symmetrical. Breath sounds clear. HEART: S1, S2. ABDOMEN: Soft. Bowel sounds present. EXTREMITIES: With right foot dressing intact. Results Result Diagram: 02/03/17 0510 02/03/17 0510 Medications Medications Current Medications Ondansetron HCl (Zofran Inj) 4 mg Q6H PRN IV NAUSEA AND/OR VOMITING; Start at 23:30 Oxycodone/ Acetaminophen (Percocet (5/ 325)) 1 tab Q6H PRN PO MODERATE PAIN LEVEL 4-6 Last administered on 02/04/17 10:20; Admin Dose 1 TAB; Start at 23:30 Hydromorphone HCl (Dilaudid) 1 mg Q4H PRN IV SEVERE PAIN LEVEL 7-10 Last administered on 02/04/17 09:01; Admin Dose 1 MG; Start 01/31/17 at 23:30 Docusate Sodium (Colace) 100 mg Q12H PRN PO CONSTIPATION; Start 01/31/17 at 23: 30 Bisacodyl (Dulcolax) 5 mg DAILY PRN PO CONSTIPATION; Start 01/31/17 at 23:30 Enoxaparin Sodium 40 mg 40 mg DAILY SC Last administered on 02/04/17 09:01; Admin Dose 40 MG; Start 02/01/17 at 09:00 Vancomycin HCl (Vancocin) 250 ml @ 125 mls/hr Q12H IVPB Last administered on 05:21; Admin Dose 125 MLS/HR; Start 02/01/17 at 06:00 Aspirin (Halfprin) 81 mg DAILY PO Last administered on 02/04/17 09:00; Admin Dose 81 MG; Start 02/01/17 at 09:00 Clopidogrel Bisulfate (plaVIX) 75 mg DAILY PO Last administered on 02/04/17 09 :00; Admin Dose 75 MG; Start 02/01/17 at 09:00 Furosemide (Lasix) 40 mg DAILY@06 PO Last administered on 02/03/17 05:43; Admin Dose 40 MG; Start 02/01/17 at 06:00 Prednisone (Prednisone) 5 mg DAILY PO Last administered on 02/04/17 09:00; Admin Dose 5 MG; Start 02/01/17 at 09:00 Trazodone HCl 50 mg 50 mg DAILY PO Last administered on 02/02/17 09:28; Admin Dose 50 MG; Start 02/01/17 at 09:00 Piperacillin Sod/ Tazobactam Sod (Zosyn 3.375gm/ 100 ml (Pmx)) 100 ml @ 200 mls /hr Q8H IVPB Last administered on 02/04/17 08:59; Admin Dose 200 MLS/HR; Start 02/01/17 at 08:00 Pantoprazole (Protonix Tab) 40 mg DAILY@06 PO Last administered on 02/04/17 05 :21; Admin Dose 40 MG; Start 02/02/17 at 06:00 Hydralazine HCl (Apresoline) 10 mg Q6H PRN IV SBP>160; Start 02/01/17 at 11:00 Cholecalciferol (Vitamin D) 1,000 unit DAILY PO Last administered on 02/04/17 09:00; Admin Dose 1,000 UNIT; Start 02/02/17 at 09:00 Lidocaine (Lidoderm) 1 patch DAILY TD Last administered on 02/03/17 15:30; Admin Dose 1 PATCH; Start 02/02/17 at 09:00 Collagenase (Santyl) 1 applic BID TOP Last administered on 02/04/17 06:13; Admin Dose 1 APPLIC; Start 02/01/17 at 21:00 Duloxetine HCl (Cymbalta) 20 mg QHS PO Last administered on 02/03/17 22:16; Admin Dose 20 MG; Start 02/02/17 at 21:00 Miscellaneous Information (*Rx Drug Level Order Reminder*) VANCOMYCIN TROUGH AT 0,500 ON... ONCE ONCE XX ; Start 02/05/17 at 05:00; Stop 02/05/17 at 05:01 MARQUEZ BAUER MD February 04, 2017 13:01
--- NOTE | 2017-02-04 17:16 | CONS ---
Date/Time of Note Date/Time of Note DATE: 02/04/17 TIME: 17:16 Assessment/Plan Assessment/Plan Chief Complaint/Hosp Course ID PROGRESS NOTE ABX DAY # Vanco IV + Zosyn 24H INTERVAL SUMMARY * Awake,alert, responsive -- tells me she is disappointed that her anticipated discharge yesterday was deferred after he son drove down from [place] to pick her up. She wants to go home..."I am depressed--other than that I guess my foot is doing ok." == apparently wound cx sensitivities had not resulted and DC held for final cx results. * Seen by podiatry who recommended 2 weeks IV ABX * WOUND CX SENSITIVITIES REPORTED BELOW * DEVI MATHIS SPS COAG NEG M.I.C. RX M.I.C. RX M.I.C. RX --------- --- --------- --- --------- --- AMIKACIN <=2 S AMPICILLIN <=2 S AZTREONAM S CEFAZOLIN S CEFEPIME <=1 S CEFTAZIDIME <=1 S CIPROFLOXACIN <=0.25 S <=0.5 S CLINDAMYCIN >=8 R DOXYCYCLINE S ERYTHROMYCIN >=8 R GENTAMICIN <=1 S IMIPENEM 1 S LEVOFLOXACIN 0.5 S 1 S <=0.12 S OXACILLIN <=0.25 S PENICILLIN-G 4 S >=0.5 R RIFAMPIN <=0.5 S VANCOMYCIN 1 S 1 S TOBRAMYCIN <=1 S TRIMETHOPRIM/SULFAMETHOXAZOLE 80 R PIPERACILLIN/TAZOBACTAM <=4 S S AGA(GR B Zone Size RX --------- --- * AMPICILLIN S * CEFAZOLIN S * CEFOTAXIME S * CEFUROXIME S * CIPROFLOXACIN S * CLINDAMYCIN R * ERYTHROMYCIN R * PENICILLIN S * VANCOMYCIN S PHYSICAL EXAMINATION: GENERAL: VSS, NAD HEENT: Unremarkable NECK: Trach-> midline CHEST: [place] chest without dyspnea HEART: Pulse RRR ABDOMEN: Soft EXTREMITIES: Warm, DSG intact SKIN: Warm, dry ID ASSESSMENT: 76 yo F w/ admitted with: 1. Right foot and ankle cellulitis w/dorsal foot edema/abscess => Foot X-ray: No radiographic evidence for osteomyelitis. * S/P podiatry follow up, recommended 2 weeks of IV abx and wound care * Wound Cx 02/01 = Polymicrobial WOUND CULTURE Final Organism 1 PSEUDOMONAS AERUGINOSA QUANTITY 1+ Organism 2 ENTEROCOCCUS SPECIES QUANTITY 2+ Organism 3 COAGULASE NEGATIVE STAPH QUANTITY 3+ Organism 4 STREP AGALACTIAE - (GROUP B) QUANTITY 2+ 2. Right lower extremity Charcot, status post fusion right ankle, hindfoot, and medial midfoot, 3. Peripheral arterial disease-> H/.O Stent 4. Venous stasis with ulceration 5. RA 6. DM2 7. Status post bilateral knee arthroplasties 8. H/O lumbar spine posterior decompression. ABX ALLERGIES: NKDA CURRENT ABX: # # Vanco IV + Zosyn ID RECOMMENDATIONS: 1. Blood cx are negative, foot x-ray report " NO EVIDENCE OSTEOMYELITIS" - Patient requesting DC home on PO ABX 2. May DC home on Augmentin 875mg po BID + CIPRO 500mg po BID x 14 days w/OP F/ U with APC. * Continue IV ABX while on inpatient status -> Primary may call ABX to OP Pharmacy vs give Rx to patient upon DC home. . Problems: Consultation Date/Type/Reason Admit Date/Time January 31, 2017 at 18:00 Initial Consult Date 01/31/17 Type of Consultation: ID Exam/Review of Systems Vital Signs Vitals Vital Signs Date Time Temp Pulse Resp B/P Pulse Ox O2 Delivery O2 Flow Rate FiO2 02/04/17 07:56 98.2 79 18 131/73 93 02/03/17 16:00 Room Air Intake and Output 02/03/17 02/03/17 02/04/17 15:00 23:00 07:00 Intake Total 250 ml 1650 ml 905 ml Output Total 1600 ml Balance 250 ml 1650 ml -695 ml Results Result Diagram: 02/03/17 0510 02/03/17 0530 Medications Medications Current Medications Ondansetron HCl (Zofran Inj) 4 mg Q6H PRN IV NAUSEA AND/OR VOMITING; Start at 23:30 Oxycodone/ Acetaminophen (Percocet (5/ 325)) 1 tab Q6H PRN PO MODERATE PAIN LEVEL 4-6 Last administered on 02/04/17 16:28; Admin Dose 1 TAB; Start at 23:30 Hydromorphone HCl (Dilaudid) 1 mg Q4H PRN IV SEVERE PAIN LEVEL 7-10 Last administered on 02/04/17 14:16; Admin Dose 1 MG; Start 01/31/17 at 23:30 Docusate Sodium (Colace) 100 mg Q12H PRN PO CONSTIPATION; Start 01/31/17 at 23: 30 Bisacodyl (Dulcolax) 5 mg DAILY PRN PO CONSTIPATION; Start 01/31/17 at 23:30 Enoxaparin Sodium 40 mg 40 mg DAILY SC Last administered on 02/04/17 09:01; Admin Dose 40 MG; Start 02/01/17 at 09:00 Vancomycin HCl (Vancocin) 250 ml @ 125 mls/hr Q12H IVPB Last administered on 05:21; Admin Dose 125 MLS/HR; Start 02/01/17 at 06:00 Aspirin (Halfprin) 81 mg DAILY PO Last administered on 02/04/17 09:00; Admin Dose 81 MG; Start 02/01/17 at 09:00 Clopidogrel Bisulfate (plaVIX) 75 mg DAILY PO Last administered on 02/04/17 09 :00; Admin Dose 75 MG; Start 02/01/17 at 09:00 Furosemide (Lasix) 40 mg DAILY@06 PO Last administered on 02/03/17 05:43; Admin Dose 40 MG; Start 02/01/17 at 06:00 Prednisone (Prednisone) 5 mg DAILY PO Last administered on 02/04/17 09:00; Admin Dose 5 MG; Start 02/01/17 at 09:00 Trazodone HCl 50 mg 50 mg DAILY PO Last administered on 02/02/17 09:28; Admin Dose 50 MG; Start 02/01/17 at 09:00 Piperacillin Sod/ Tazobactam Sod (Zosyn 3.375gm/ 100 ml (Pmx)) 100 ml @ 200 mls /hr Q8H IVPB Last administered on 02/04/17 16:28; Admin Dose 200 MLS/HR; Start 02/01/17 at 08:00 Pantoprazole (Protonix Tab) 40 mg DAILY@06 PO Last administered on 02/04/17 05 :21; Admin Dose 40 MG; Start 02/02/17 at 06:00 Hydralazine HCl (Apresoline) 10 mg Q6H PRN IV SBP>160; Start 02/01/17 at 11:00 Cholecalciferol (Vitamin D) 1,000 unit DAILY PO Last administered on 02/04/17 09:00; Admin Dose 1,000 UNIT; Start 02/02/17 at 09:00 Lidocaine (Lidoderm) 1 patch DAILY TD Last administered on 02/03/17 15:30; Admin Dose 1 PATCH; Start 02/02/17 at 09:00 Collagenase (Santyl) 1 applic BID TOP Last administered on 02/04/17 06:13; Admin Dose 1 APPLIC; Start 02/01/17 at 21:00 Duloxetine HCl (Cymbalta) 20 mg QHS PO Last administered on 02/03/17 22:16; Admin Dose 20 MG; Start 02/02/17 at 21:00 Miscellaneous Information (*Rx Drug Level Order Reminder*) VANCOMYCIN TROUGH AT 0,500 ON... ONCE ONCE XX ; Start 02/05/17 at 05:00; Stop 02/05/17 at 05:01 CITLALY MULLINS NP February 04, 2017 17:16
[2017-02-04 20:00] VITALS: BP 127/58; RESP 20
[2017-02-04] MEDS: DULOXETINE 20 MG CAP DR PO SCH (21:36)
[2017-02-04] MEDS ORDERED: LORAZEPAM 2 MG INJ IV ONE ×2 (22:30)
[2017-02-04] MEDS ORDERED: LORAZEPAM 2 MG INJ IV PRN (23:00)
[2017-02-05] MEDS: HYDROmorphONE 1 MG/ML SYG IV PRN ×4 (02:35→14:47)
[2017-02-05] MEDS: OXYCODONE/ACETAMINOPHEN (5/325) TAB PO PRN ×2 (05:20→16:06)
[2017-02-05] MEDS: PANTOPRAZOLE (EC) 40 MG TAB PO SCH (05:46)
[2017-02-05] MEDS: FUROSEMIDE 40 MG TAB PO SCH (05:47)
[2017-02-05 06:03] LABS: CREATININE 0.59 mg/dl (0.44-1.00)
[2017-02-05] MEDS: VANCOMYCIN 1 GM in NS 250 ML IVPB SCH (06:28)
[2017-02-05] MEDS ORDERED: LIDOCAINE 4% CR TOP PRN (07:00)
[2017-02-05 07:49] VITALS: BP 146/67; RESP 18
[2017-02-05] MEDS: LIDOCAINE 5% PATCH TD SCH (09:00)
[2017-02-05] MEDS: traZODone 50 MG TAB PO SCH (09:00)
[2017-02-05] MEDS: PIPER-TAZO 3.375 GM IV (PMX) 100 ML IVPB SCH ×2 (09:22→16:00)
[2017-02-05] MEDS: ASPIRIN (EC) 81 MG TAB PO SCH (09:23)
[2017-02-05] MEDS: CHOLECALCIFEROL 1,000 UNIT TAB PO SCH (09:23)
[2017-02-05] MEDS: COLLAGENASE 30 GM TUBE TOP SCH (09:24)
[2017-02-05] MEDS: predniSONE 5 MG TAB PO SCH (09:24)
[2017-02-05] MEDS: CLOPIDOGREL 75 MG TAB PO SCH (09:24)
[2017-02-05] MEDS: ENOXAPARIN 40 MG/0.4 ML SYG SC SCH (09:29)
--- NOTE | 2017-02-05 15:29 | PDOCDIS ---
Discharge Instructions CONDITION Patient Condition: Good HOME CARE INSTRUCTIONS: Special Diet: Low Fat, Low Cholesterol ACTIVITY: Activity Restrictions: Slowly Increase Activity Rest between Activity Avoid heavy lifting Avoid Heavy Housework FOLLOW UP/APPOINTMENTS Appointments follow up with Infectious disease service in 2 weeks after discharge. follow up with podiatry SIMA Saavedra DPM in 2 weeks after discharge. Follow up with her own PMD in 1-2 week after discharge MARQUEZ BAUER MD February 05, 2017 15:29
[2017-02-05] MEDS ORDERED: AMOX1TAB10 PO (15:30)
[2017-02-05] MEDS ORDERED: CIPR500T4 PO (15:30)
--- NOTE | 2017-02-05 15:47 | CONS ---
Date/Time of Note Date/Time of Note DATE: 02/05/17 TIME: 15:44 Assessment/Plan Assessment/Plan Chief Complaint/Hosp Course ID PROGRESS NOTE ABX DAY # Vanco IV + Zosyn 24H INTERVAL SUMMARY * DC Planning in process -> Seen prior to DC, she is eager to return home to prior RN Care on PO ABX * No new issues * PHYSICAL EXAMINATION: GENERAL: VSS, NAD HEENT: Unremarkable NECK: Trach-> midline CHEST: [place] chest without dyspnea HEART: Pulse RRR ABDOMEN: Soft EXTREMITIES: Warm, DSG intact SKIN: Warm, dry ID ASSESSMENT: 76 yo F w/ admitted with: 1. Right foot and ankle cellulitis w/dorsal foot edema/abscess => Foot X-ray: No radiographic evidence for osteomyelitis. * S/P podiatry follow up, recommended 2 weeks of IV abx and wound care * Wound Cx 02/01 = Polymicrobial WOUND CULTURE Final Organism 1 PSEUDOMONAS AERUGINOSA QUANTITY 1+ Organism 2 ENTEROCOCCUS SPECIES QUANTITY 2+ Organism 3 COAGULASE NEGATIVE STAPH QUANTITY 3+ Organism 4 STREP AGALACTIAE - (GROUP B) QUANTITY 2+ 2. Right lower extremity Charcot, status post fusion right ankle, hindfoot, and medial midfoot, 3. Peripheral arterial disease-> H/.O Stent 4. Venous stasis with ulceration 5. RA 6. DM2 7. Status post bilateral knee arthroplasties 8. H/O lumbar spine posterior decompression. ABX ALLERGIES: NKDA CURRENT ABX: # # Vanco IV + Zosyn ID RECOMMENDATIONS: 1. Blood cx are negative, foot x-ray report " NO EVIDENCE OSTEOMYELITIS" - Patient requesting DC home on PO ABX 2. May DC home on Augmentin 875mg po BID + CIPRO 500mg po BID x 14 days w/OP F/ U with APC. 3. Patient has instructions to f/u w/primary MD in 1-week, f/u with podiatry & ID 2 weeks after ABX course . . Problems: Consultation Date/Type/Reason Admit Date/Time January 31, 2017 at 18:00 Initial Consult Date 01/31/17 Type of Consultation: ID Exam/Review of Systems Vital Signs Vitals Vital Signs Date Time Temp Pulse Resp B/P Pulse Ox O2 Delivery O2 Flow Rate FiO2 02/05/17 07:49 98.9 78 18 146/67 94 02/03/17 16:00 Room Air Intake and Output 02/04/17 02/04/17 02/05/17 15:00 23:00 07:00 Intake Total 225 ml 1230 ml 940 ml Output Total 450 ml 850 ml Balance 225 ml 780 ml 90 ml Results Result Diagram: 02/03/17 0510 02/05/17 0500 Results 24 hrs Laboratory Tests Test 02/05/17 05:00 02/05/17 05:07 Blood Urea Nitrogen 16 Creatinine 0.59 Vancomycin Level Trough 19.1 Medications Medications Current Medications Ondansetron HCl (Zofran Inj) 4 mg Q6H PRN IV NAUSEA AND/OR VOMITING; Start at 23:30 Oxycodone/ Acetaminophen (Percocet (5/ 325)) 1 tab Q6H PRN PO MODERATE PAIN LEVEL 4-6 Last administered on 02/05/17 05:20; Admin Dose 1 TAB; Start at 23:30 Hydromorphone HCl (Dilaudid) 1 mg Q4H PRN IV SEVERE PAIN LEVEL 7-10 Last administered on 02/05/17 14:47; Admin Dose 1 MG; Start 01/31/17 at 23:30 Docusate Sodium (Colace) 100 mg Q12H PRN PO CONSTIPATION; Start 01/31/17 at 23: 30 Bisacodyl (Dulcolax) 5 mg DAILY PRN PO CONSTIPATION; Start 01/31/17 at 23:30 Enoxaparin Sodium (Lovenox) 40 mg DAILY SC Last administered on 02/05/17 09:29 ; Admin Dose 40 MG; Start 02/01/17 at 09:00 Aspirin (Halfprin) 81 mg DAILY PO Last administered on 02/05/17 09:23; Admin Dose 81 MG; Start 02/01/17 at 09:00 Clopidogrel Bisulfate (plaVIX) 75 mg DAILY PO Last administered on 02/05/17 09 :24; Admin Dose 75 MG; Start 02/01/17 at 09:00 Furosemide (Lasix) 40 mg DAILY@06 PO Last administered on 02/03/17 05:43; Admin Dose 40 MG; Start 02/01/17 at 06:00 Prednisone (Prednisone) 5 mg DAILY PO Last administered on 02/05/17 09:24; Admin Dose 5 MG; Start 02/01/17 at 09:00 Trazodone HCl 50 mg 50 mg DAILY PO Last administered on 02/02/17 09:28; Admin Dose 50 MG; Start 02/01/17 at 09:00 Piperacillin Sod/ Tazobactam Sod (Zosyn 3.375gm/ 100 ml (Pmx)) 100 ml @ 200 mls /hr Q8H IVPB Last administered on 02/05/17 09:22; Admin Dose 200 MLS/HR; Start 02/01/17 at 08:00 Pantoprazole (Protonix Tab) 40 mg DAILY@06 PO Last administered on 02/05/17 05 :46; Admin Dose 40 MG; Start 02/02/17 at 06:00 Hydralazine HCl (Apresoline) 10 mg Q6H PRN IV SBP>160; Start 02/01/17 at 11:00 Cholecalciferol (Vitamin D) 1,000 unit DAILY PO Last administered on 02/05/17 09:23; Admin Dose 1,000 UNIT; Start 02/02/17 at 09:00 Lidocaine (Lidoderm) 1 patch DAILY TD Last administered on 02/03/17 15:30; Admin Dose 1 PATCH; Start 02/02/17 at 09:00 Collagenase (Santyl) 1 applic BID TOP Last administered on 02/05/17 09:24; Admin Dose 1 APPLIC; Start 02/01/17 at 21:00 Duloxetine HCl (Cymbalta) 20 mg QHS PO Last administered on 02/04/17 21:36; Admin Dose 20 MG; Start 02/02/17 at 21:00 Lorazepam (Ativan) 1 mg HS PRN IV anxiety Last administered on 02/05/17 00:07 ; Admin Dose 1 MG; Start 02/04/17 at 23:00 Lidocaine 1 applic 1 applic DAILY PRN TOP PAIN; Start 02/05/17 at 07:00 Vancomycin HCl/ Sodium Chloride (Vancocin/NS) 150 ml @ 75 mls/hr Q12H IVPB ; Start 02/05/17 at 21:00 CITLALY MULLINS NP February 05, 2017 15:47
[2017-02-05] MEDS ORDERED: VANCOMYCIN 750 MG in SOD CHLORIDE 0.9% 150 ML IVPB SCH (21:00)
--- NOTE | 2017-02-08 00:03 | DS ---
DATE OF ADMISSION: 01/31/2017 DATE OF DISCHARGE: 02/05/2017 FINAL DISCHARGE DIAGNOSES: 1. Right foot and right ankle cellulitis. 2. Right lower extremity Charcot, status post fusion. 3. Peripheral arterial disease. 4. Venous stasis with ulceration. 5. Rheumatoid arthritis. 6. Diabetes mellitus type 2. 7. Status post bilateral knee arthroplasties. 8. History of lumbar spine posterior decompression. CONSULTATIONS DONE DURING THIS HOSPITALIZATION: 1. Podiatry consult, Dr. Mayank López 2. Infectious Disease consult, Dr. Ortega [facility] COURSE: This is a 76-year-old female with a past medical history of hypertension; diabetes mellitus type 2; peripheral vascular arterial disease, status post stent placement in lower extremi ties; venous stasis with ulceration; rheumatoid arthritis, status post bilateral knee arthroplasties and history of lumbar spine posterior decompression. She presented with right foot pain, swelling and erythema. The patient is noted to have right foot ankle cellulitis with dorsal foot edema/absce ss for which she had x-ray done which was negative for any osteomyelitis. The patient had a wound c ulture growing polymicrobial wound culture. She was evaluated by Podiatry, Dr. Mayank López, who recommended IV antibiotics and wound care. The patient remained in the hospital for 5 days, receive d IV antibiotics, having an infectious disease consultation by Dr. Ortega and recommended to have p. o. Augmentin upon discharge and wound care and home health which was set up by caser. She ge ts discharged to home with home health. DISPOSITION: Home with home health. DISCHARGE CONDITION: Stable, improved compared to admission. DISCHARGE ACTIVITIES: As tolerated. Slowly resume to the normal baseline activity. DISCHARGE DIET: Low-fat, low-sodium diet, ADA 1800-kilocalorie diet. DISCHARGE MEDICATIONS: She is given new prescriptions of: 1. Augmentin 875/125 mg p.o. b.i.d. x14 days. 2. Ciprofloxacin 500 mg p.o. b.i.d. x14 days. She is continued on all of her other home medications upon discharge. DISCHARGE FOLLOWUP INSTRUCTIONS: 1. The patient is to follow up with her own primary care doctors 1 to 2 weeks after discharge. She is also advised to follow up with Podiatry, Dr. Mayank López, as outpatient in 1 to 2 weeks after discharge. 2. The patient is to follow with infectious disease service, Dr. Ortega, as outpatient in 1 to 2 we eks after discharge. She has been explained about the discharge plan, followup instructions. She understood and verbaliz ed understanding. Total time spent in this patient's discharge plan, communicating with the patient and family member at bedside, communicating with the nursing staff on the floor took more than 60 minutes. Dictated By: MARQUEZ BAUER MD, KP/OTONIEL Conf#: [id number] DID#: [id number]
== END 2017-02-05 17:00 | disposition home health service (06) | DRG 603 ==
LOC: E/R 12:02 → MS2 18:00
PROVIDERS: ADMIT Family Medicine; ATTEND Family Medicine
DX: L03.115 Cellulitis of right lower limb (principal); A52.16 Charcot's arthropathy (tabetic); L97.411 Non-pressure chronic ulcer of right heel and midfoot limited to breakdown of skin; E87.5 Hyperkalemia; B96.5 Pseudomonas (aeruginosa) (mallei) (pseudomallei) as the cause of diseases classified elsewhere; B95.1 Streptococcus, group B, as the cause of diseases classified elsewhere; B95.2 Enterococcus as the cause of diseases classified elsewhere; M06.9 Rheumatoid arthritis, unspecified; I70.235 Atherosclerosis of native arteries of right leg with ulceration of other part of foot; L97.511 Non-pressure chronic ulcer of other part of right foot limited to breakdown of skin; E78.5 Hyperlipidemia, unspecified; F41.9 Anxiety disorder, unspecified; I87.2 Venous insufficiency (chronic) (peripheral); Z96.653 Presence of artificial knee joint, bilateral; Z98.1 Arthrodesis status; Z90.710 Acquired absence of both cervix and uterus; Z95.820 Peripheral vascular angioplasty status with implants and grafts
CPT/HCPCS: 36415; 71010; 73630; 73706; 80048; 80053; 80061; 80202; 82306; 82565; 82652; 83036; 83735; 84100; 84520; 85025; 85610; 85651; 85730; 87040; 87070; 93005; 93306; 93923; 96361; 96365; 96367; 96375; J1170; J1650; J2060; J2543; J3370; J7030; J7040; J7512; Q9967